=== PATIENT | male | born 1970 | race Caucasian/White ===

== ENCOUNTER → 2019-08-27 14:27 | Outpatient (CLI) | payer BC, SELFPAY ==
--- NOTE | 2019-08-27 14:36 | US_ITS ---
PROCEDURE: US LIVER CLINICAL INDICATION: ELEVATED LIVER ENZYMES Elevated liver enzymes, elevated cholesterol COMPARISON: No exams were available for comparison FINDINGS: PANCREAS: Unremarkable. No obvious mass or abnormal fluid collection. No ductal dilatation LIVER: There is slight increased echogenicity of the liver the suggesting fatty liver. No focal liver lesions or biliary dilatation evident. Appropriate portal blood flow RIGHT KIDNEY: There is a complex cystic lesion involving the mid aspect of the right kidney which measures 4 x 2.5 cm with central increased echogenicity which may represent some calcium. GALLBLADDER: No gallstones, gallbladder wall thickening, pericholecystic fluid, or biliary dilatation. IMPRESSION: 1. Complex cystic lesion of the right kidney at 4 x [address] with renal protocol without and with contrast 2. No gallstones or biliary dilatation. Dictated by: Constantino Rowland MD 08/28/2019 11:39 Electronically signed by Constantino Rowland MD in [place] 08/28/2019 11:39
== END ==
PROVIDERS: PCP Nurse Practitioner; Visit Provider Nurse Practitioner
DX: R74.8 Abnormal levels of other serum enzymes (principal)
CPT/HCPCS: 76705

== ENCOUNTER → 2019-09-16 10:21 | Outpatient (CLI) | payer BC, SELFPAY ==
--- NOTE | 2019-09-16 11:28 | CT_ITS ---
PROCEDURE: CT ABDOMEN PELVIS WO/W CON CLINICAL INDICATION: ABN ULTRASOUND OF RT KIDNEY Complex right renal cyst COMPARISON: US LIVER from 08/27/2019 TECHNIQUE: IV Contrast: 75ML OPTIRAY 350 Oral Contrast none Axial images obtained with sagittal and coronal reformats. All CT scans at the facility use one or more dose reduction, viz: automated exposure control, ma/kV adjustment per patient size (including targeted exams where dose is matched to indication, i.e. head), or iterative reconstruction technique. FINDINGS: LOWER THORAX: Old granulomatous disease ABDOMEN & PELVIS: The liver, gallbladder, spleen, pancreas, adrenal glands, and left kidney have an unremarkable appearance aside from a small exophytic left renal cyst anteriorly measuring 11 mm. There is a by a lobular appearing right renal cyst with a thin internal septation. This cyst measures 3.9 by 3 cm. There is no calcification of the wall. The septation is thin with questionable but not measurable enhancement. There is diverticulosis of the descending colon and sigmoid colon. No evidence of diverticulitis. The appendix has an unremarkable appearance. No intestinal obstruction or free air. No pelvic mass or abnormal fluid collection. There is a small sclerotic focus of the left femoral neck consistent with a bone island IMPRESSION: 1. Right renal cyst probably benign, Bosniak 2 F. suggest 6 month follow-up 2. Colonic diverticulosis. Dictated by: Constantino Rowland MD 09/17/2019 10:28 Electronically signed by Constantino Rowland MD in [place] 09/17/2019 10:28
== END ==
PROVIDERS: PCP Nurse Practitioner; Visit Provider Nurse Practitioner
DX: R93.421 Abnormal radiologic findings on diagnostic imaging of right kidney (principal)
CPT/HCPCS: 74178; Q9967

== ENCOUNTER → 2020-09-04 10:02 | Outpatient (CLI) | payer MEDICAID, SELFPAY ==
--- NOTE | 2020-09-04 10:05 | NM_ITS ---
PROCEDURE: NM HEPATOBILIARY W PHARM CLINICAL INDICATION: ABD PAIN,CONTRACTION GB COMPARISON: No exams were available for comparison TECHNIQUE: 8.5 mCi technetium 9 M Choletec was injected initially. This was followed by 1.7 mcg of CCK evaluation ejection fraction. DOSE: FINDINGS: Homogeneous activity is present within the hepatic parenchyma. Activity is present in the gallbladder by 15 minutes. Activity is present in the small bowel by 10 minutes. The gallbladder ejection fraction is calculated to be 52 percent. CCK-The patient did not report pain or other symptoms during CCK infusion. IMPRESSION: Essentially normal study, ejection fraction at the low normal range Dictated by: Dr. Gurdeep Black MD 09/04/2020 12:53 Dr. Gurdeep Black MD in [place] 09/04/2020 12:53
== END ==
PROVIDERS: PCP Nurse Practitioner; Visit Provider Nurse Practitioner
DX: R10.11 Right upper quadrant pain (principal); K82.0 Obstruction of gallbladder
CPT/HCPCS: 78227; A9537; J2805

== ENCOUNTER 2021-05-08 12:30 | Emergency (ER) | payer BC, SELFPAY ==
[2021-05-08 12:42] VITALS: BP 126/76; PULSE 89; RESP 89; TEMP 36.4; O2SAT 98; BMI 29.0
[2021-05-08 14:00] VITALS: BP 126/76; PULSE 89; RESP 21; TEMP 36.4; O2SAT 98; BMI 29.0
--- NOTE | 2021-05-08 14:22 | XR_ITS ---
PROCEDURE: XR KNEE LT 3V CLINICAL INDICATION: PAIN COMPARISON: No exams were available for comparison FINDINGS: No fracture or dislocation. No lytic or blastic change. There is normal mineralization. The joint spaces are well-preserved. No significant degenerative/arthritic changes. No erosive changes evident. Other findings:None. IMPRESSION: No acute findings. Dictated by: Constantino Rowland MD 05/08/2021 14:57 Constantino Rowland MD in [place] 05/08/2021 14:57
--- NOTE | 2021-05-08 14:43 | HMH.EDUTC ---
[facility] Disposition Clinical Impression: Knee pain Qualifiers: Chronicity: unspecified Laterality: left Qualified Code(s): M25.562 - Pain in left knee Disposition: Home, Self-Care Condition on Discharge: Good Instructions: How To Perform RICE (Rest, Ice, Compress, Elevate) Additional Instructions: *weight bearing as tolerated *RICE, Rest the extremity, Ice 15-20 minutes 3-4 times daily, Compress- wear the chester wrap as discussed as much as possible to help reduce swelling and pain, Elevate the extremity when at rest *Chester wrap is for support and help control swelling, use it except in the shower. Be sure that is not to tight but not to loose either *Elevate when resting *Ibuprofen 600-800mg every 6-8 hours as needed for pain an inflammation. If need something more can take Tylenol in between doses of Ibuprofen to help if you have been told that you can take it Immediately follow up with your family doctor for new or worsening of symptoms, or no noticeable improvement over the next 3-5 days Return if needed Straight to ER if any life threatening Referrals: Tomasa Canales APRN [Primary Care Provider] - As needed Time of Disposition: 15:03 Medical Decision Making - Paramjit Inquiry Pt receiving controlled substance: No Paramjit was queried for this patient: No Vital Signs: 05/08/21 12:42 05/08/21 14:00 Temperature 97.6 F 97.6 F Temperature Source Oral Oral Pulse Rate [Right Radial] 89 89 Respiratory Rate 89 H 21 Blood Pressure [Right Arm] 126/76 126/76 Blood Pressure Mean [Right Arm] 92 92 Blood Pressure Source [Right Arm] Automatic Cuff Automatic Cuff Blood Pressure Position [Right Arm] Sitting Sitting 02 Sat by Pulse Oximetry 98 98 Oxygen Delivery Method Room Air Room Air Orders (Tests/Meds): ORDERS Category Date Time Status XR knee LT 3V Stat Exams 05/08/21 14:22 Taken - Radiology Data #1 Image(s): Knee (left) Image Reviewed: Yes I have reviewed radiologist's interpretation Preliminary Findings: No Fracture Seen No acute findings. [facility] HPI - General Stated complaint: left knee pain Time Seen by Provider: 05/08/21 14:44 Mode of Arrival: Ambulatory Source of Information: Patient Limitations: No Limitations Description of Symptoms (Recalled from Triage Doc. by RN): PATIENT C/O WORSENTING LEFT KNEE PAIN X 3 WEEKS. NO KNOWN INJURY HEENT Symptoms (Recalled from RN notes): No Resp Symptoms (Recalled from RN notes): No Skin Symptoms (Recalled from RN notes): No MS Symptoms (Recalled from RN notes): Yes Functional Status (Recalled from RN notes): WNL - History of Present Illness Provider Complaint: Patient states that he has been having pain in his right knee for about 3 weeks on and off State that it is worse when he is sitting with it bent and feels better when he is up walking around states that he has been taking OTC ibuprofen and it has helped him some Denies known injury - Related Data Home Medications Medication Instructions Recorded Confirmed No Known Home Medications 10/27/18 10/27/18 Allergies Allergy/AdvReac Type Severity Reaction Status Date / Time No Known Allergies Allergy Verified 10/27/18 03:53 - Worker's Comp Is this a Worker's Comp case?: No [facility] History - Hepatitis A Screen Drug use history?: No High risk sexual behaviors?: No History of sexually transmitted infection?: No Currently employed?: No Childcare worker?: No Do you have indoor plumbing?: Yes Do you have electricity?: Yes Attestation statement:: This patient has been screened for Hepatitis A risk factors. I have reviewed the patient's past medical history: Yes Medical History: Denies:: Cancer, Diabetes Mellitus Type 1, Diabetes Mellitus Type 2, MRSA Amputation: No Fractures: No - Social History Smoking Status: Current every day smoker # Packs/Day (cigarettes): 1 Alcohol Intake: current Alcohol Intake Frequency:: holidays/special occasions only Occupational Status: employed Housing:
[2021-05-08 15:09] VITALS: BP 126/76; PULSE 89; RESP 21; TEMP 36.4; O2SAT 98
== END 2021-05-08 15:10 | disposition home or self-care (01) ==
PROVIDERS: Emergency Provider Nurse Practitioner; PCP Nurse Practitioner
DX: M25.562 Pain in left knee (principal); F17.210 Nicotine dependence, cigarettes, uncomplicated
CPT/HCPCS: 73562; 99202; G0463

== ENCOUNTER 2022-10-29 15:23 | Outpatient (CLI) | payer SELFPAY | END 2022-10-29 16:00 | disposition home or self-care (01) | LOC: UTC 15:30 → UTC.OUT 15:35 | PROVIDERS: PCP Nurse Practitioner; Visit Provider Nurse Practitioner Family | DX: Z02.4 Encounter for examination for driving license (principal) ==

== ENCOUNTER 2025-03-27 18:52 | Emergency (ER) | payer SELFPAY ==
--- OUTSIDE RECORDS SUMMARY | 2021-10-18 11:05 | XMS_ITS | Continuity of Care Document ---
Author Organization [facility] Address [address] [place] [address] Phone Care Team Providers Care Shearer Helper Name Role Phone Hermes BRAGG, Stiven Unavailable Unavailable Allergies, Adverse Reactions, Alerts Substance Reaction Status Criticality No Known Drug Allergies Active No I nformation Medications Medication Instructions Dosage Effective Dates (start - stop) Status Comments prednisone 5 mg tablet take 6 pills x 3 days, then 4 pills x 3 days, then 2 pills x 3 days, then 2 pills every other day x 3 doses - Active Ultram 50 mg tablet take 1 tablet by oral route every 6 hours as needed - Active Gaffney 5 mg-325 mg tablet take 1 tablet by oral route every 4 - 6 hours as needed for pain - Active MAX 6 PER DAY Percocet 5 mg-325 mg tablet take 1 - 2 Tablet by ORAL route every 4 - 6 hours as needed 1-2 Tablet - Active MAX 9 A DAY promethazine 25 mg tablet take 1 tablet by oral route every 4 - 6 hours as needed 25 MG - Active Procedures Procedure Date Office/outpatient visit,new, mod 2021 X-ray exam of hand, 3+ views Postop followup visit Postop followup visit Postop followup visit X-ray exam of finger(s),2+ views 2017 Repair hand joint MRI Upr Ext Joint wo Contrast 7 Office/outpatient visit,est, mod 2016 Office/outpatient visit,est, mod 2016 Office/outpatient visit,est, mod 2016 Drain/inject small jointor bursa 2016 Dexamethasone sodium phos Office/outpatient visit,new, mod 2016 X-ray exam of finger(s),2+ views 2016 Advance Directives Directive Yes / No Effective Date File Name No Information Encounters Encounter Description Practice Location Reason(s) For Visit Diagnoses Date Provider Providers Copied on Encounter Office/outpat ient visit,new, mod [facility], [facility] [place], [place], [facility], tel:[phone] [facility] hand (chief complaint) Other infective (teno)synovi tis, left hand 2 Hermes Saleem. [address] [address], [place], [place], [id number] , [place]. tel:[phone] Referring Provider: Stiven Mirza, [address] [address], [place], [address] . tel:[phone] [facility] [address], [facility], tel:[phone] 00 [facility] No Information 8 Hermes Saleem. [address], [id number] , [place]. tel:[phone] [facility] [address] [address] [address] [place], [place], [facility], tel:[phone] 00 [facility] No Information - 8 Hermes Saleem. [address] [facility], [address] [address], [place], [place], [id number] , [place]. tel:[phone] [facility], [facility] [place], [place], [facility], tel:[phone] 00 [facility] No Information 8 Hermes Saleem. [address] [facility], [facility], [place], [place], [id number] , [place]. tel:[phone] [facility], [facility] [place], [place], [facility], [place] tel:[phone] 00 [facility] No Information 8 Hermes Stiven. [address] [facility], [address] [address], [place], [place], [id number] , [place]. tel: [phone] [facility], [address] [place] [address], [facility], [place] tel:[phone] [facility] No Information 8 Hermes Stiven. [address] [address], [place], [place], [id number] , [place]. tel: [phone] [facility] [address], [facility], [place] tel:[phone] [facility] No Information 8 Hermes Stiven. [address] [address], [place], [place], [id number] , [place]. tel: [phone] [facility], [address] [place] [address], [facility], [place] tel:[phone] 00 [facility] No Information 8 Hermes Stiven. [address] [address], [place], [place], [id number] , [place]. tel: [phone] [facility], [address] [place] [address], [facility], [place] tel:[phone] [facility] Traumatic rupture of right ulnar collateral ligament, init 8 Hermes Stiven. [address] [address], [place], [place], [id number] , [place]. tel:[phone] [facility], [address] [place] [address], [facility], [place] tel:[phone] 00 [facility] No Information 7 Hermes Stiven. [address] [facility], [facility], [place], [place], [id number] , [place]. tel:[phone] Referring Provider: Stiven Mirza, [address] [address], [place], [address] . tel:[phone] Office/outpat ient visit,est, mod [facility], [facility] [place], [facility], tel:[phone] [facility] No Information 7 Hermes Saleem. [address] [address], [place], [place], [id number] , [place]. tel:[phone] Office/outpat ient visit,est, mod [facility], [facility] [place], [facility], tel:[phone] [facility] No Information 7 Hermes Stiven. [address] [address], [place], [place], [id number] , . tel:[phone] Office/outpat ient visit,est, mod [facility], [facility] [place], [facility], tel:[phone] [facility] No Information 7 Hermes Stiven. [address] [address], [place], [place], [id number] , . tel:[phone] Office/outpat ient visit,new, mod [facility], [facility] [place], [facility], tel:[phone] [facility] hand (chief complaint) No Information 7 Hermes Saleem. [address] [facility], [address] [address], [place], [place], [id number] , . tel:[phone] Family History Family Member Type Diagnosis Age At Onset No Information Payers Payer name Insurance type Covered alliance party ID Jalyn sandoval(s) Combs - [id number] Social History Type Description Quantity Date Captured Comments Alcohol Use Details Caffeine Use Details Tobacco Use Status Smoking Status Current some day smoker 022 Sex Male Chief Complaint And Reason For Visit From encounter dated '10/18/2021 15:05'. hand (chief complaint). Description: Location: left hand. Associated symptoms include joint tenderness, swelling and weakness. Pertinent negatives include bruising. Hand Dominance: right. Reason For Referral Reason For Referral No Information History Of Present Illness Encounter Date Complaint History Of Prese nt Illness hand Location: left h and. Associated symptoms include joint tenderness, swelling and weakness. Pertinent negatives include bruising. Hand Dominance: right. hand Location: right hand (thumb(s)). The pain is aching and sharp. The pain is aggravated by bending and movement. There are no relieving factors. Associated symptoms include joint instability, joint tenderness, swelling and weakness. Hand Dominance: right. Functional Status Date Functional Assessmen t No Information Instructions Date Instruction Additional Infor mation No Information Assessments Type Assessment Date No Information Patient Care Teams Name Effective Dates (start - stop) Status Members No Information
[2025-03-27 19:04] VITALS: BP 137/89; PULSE 78; RESP 18; TEMP 36.8; O2SAT 100; BMI 28.1
--- NOTE | 2025-03-27 19:05 | XR_ITS ---
PROCEDURE INFORMATION: Exam: XR Right Hand Exam date and time: 03/27/2025 7:27 PM Age: 54 years old Clinical indication: Injury or trauma; Other: Smashed with wood TECHNIQUE: Imaging protocol: Radiologic exam of the right hand. Views: 1 or 2 views. COMPARISON: No relevant prior studies available. 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 Soft tissues: Curvilinear lucency overlying the interspace between the 1st and 2nd metacarpals which could represent gas within the soft tissues or an overlying skin fold. No radiopaque foreign body appreciated. IMPRESSION: No acute fracture appreciated. Questionable gas within the soft tissues overlying the interspace between the 1st and 2nd metacarpals versus a skin fold. No radiopaque foreign body. Osteoarthritis.
--- OUTSIDE RECORDS SUMMARY | 2025-03-27 19:05 | XMS_ITS | Encounter Summary ---
Author Organization [employer] ([place], [place], [place], [place]) Address [address] [place] [address] Care Team Providers Care Psychological Stress Evaluator Name Role Phone Unavailable Primary Care Provider Unavailabl e Encounter Details Date Type Department Care Team (Late st Contact Info) Description 10/13/2018 Transcribed Document [facility] Family Medicine [facility] [place] [address] ProviderPaul MD [address] [place] [address] Social History Tobacco Use Types Packs/Day Years Used Date Smoking Tobacco: Never Assessed Sex and Gender Information Value Date Recorded Sex Assigned at Male 03/07/2022 4:44 PM CDT Legal Sex Male 6:27 PM CDT Gender Identity Male 03/07/2022 4:44 PM CDT Sexual Orientation Not on file documented as of this encounter Miscellaneous Notes * Cerner Conversion Note - Historical ProviderMD - 10/13/2018 10:23 PM PLASTICS DESIGN ENGINEER ED Triage Entered On: 10/13/2018 22:32 EST Performed On: 10/13/2018 22:28 EST by Ida Kaur, DEGREASING SOLUTION MIXER Triage Across the Room Triage Date/Time : 10/13/2018 22:28 EST Chief Complaint : pt was eating a roast this evening and felt it get caught. pt went to OSH and was sent here for further eval. skin pwd, resp even and nonlabored. Ida Kaur, RN - 10/13/2018 22:28 EST DCP GENERIC CODE Tracking Acuity : 3 - Urgent Tracking Group : [facility] Ida Kaur, RN - 10/13/2018 22:28 EST Mode of Arrival : Ambulatory Transported to ED by : Private vehicle To Room Via : Ambulate Accompanied By : Unaccompanied ED Vital Signs : Document Height & Weight : Document ED Allergies : Document ED Reason for Visit : Document Ida Kaur RN - 10/13/2018 22:28 EST Infectious Disease History Infectious Disease History : None Fever/Chills Last 48 Hours : No Travel To Regions with Travel Advisories : No Travel Outside [place] Within Last 30 Days : No Contact With Traveler to Advisory Region : No Tuberculosis Symptoms : None Ida Kaur RN - 10/13/2018 22:28 EST Vital Signs ED Temperature Source : Temporal artery scanning Temperature Mode : Fahrenheit Temperature, Fahrenheit : 96.5 Deg F (LOW) Clinical Temperature, C : 35.8 Deg C Oxygen Therapy Mode : Room air Peripheral Pulse Rate : 93 bpm Respiratory Rate : 18 Breaths/Min Systolic Blood Pressure : 139 mmHg Diastolic Blood Pressure : 91 mmHg (HI) Oxygen Saturation : 96 % Ida Kaur RN - 10/13/2018 22:28 EST Allergy (As Of: 10/13/2018 22:32:37 EST) Allergies (Active) No Known Medication Allergies Estimated Onset Date: Unspecified ; Created By: Ida Kaur RN; Reaction Status: Active ; Category: Drug ; Substance: No Known Medication Allergies ; Type: Allergy ; Updated By: Ida Kaur RN; Reviewed Date: 10/13/2018 22:30 EST Diagnosis Control ED (As Of: 10/13/2018 22:32:37 EST) Problems(Active) Acid reflux disease (SNOMED CT :138847119 ) Name of Problem: Acid reflux disease ; Recorder: Ida Kaur RN; Confirmation: Confirmed ; Classification: Medical ; Code: [id number] ; Contributor System: [employer] ; Last Updated: 10/13/2018 22:30 EST ; Life Cycle Date: 10/13/2018 ; Life Cycle Status: Active ; Vocabulary: SNOMED CT Diverticulitis of both large and small intestine with perforation and abscess (SNOMED CT :932296016 ) Name of Problem: Diverticulitis of both large and small intestine with perforation and abscess ; Recorder: Ida Kaur RN; Confirmation: Confirmed ; Classification: Medical ; Code: [id number] ; Contributor System: PowerChart ; Last Updated: 10/13/2018 22:30 EST ; Life Cycle Date: 10/13/2018 ; Life Cycle Status: Active ; Vocabulary: SNOMED CT Diagnoses(Active) Foreign body in throat Date: 10/13/2018 ; Diagnosis Type: Reason For Visit ; Confirmation: Complaint of ; Clinical Dx: Foreign body in throat ; Classification: Medical ; Clinical Service: Emergency medicine ; Code: PNED ; Probability: 0 ; Diagnosis Code: [id number] ED Height and Weight Height Source : Stated Height Entry Format : [place] Height, Feet : 5 ft(Converted to: 152 cm, 60 Inch) Height, Inches : 6 Inch(Converted to: 0 ft 6 Inch, 15.24 cm) Clinical Height : 167.64 cm Weight Source, ED : Standing scale Weight Entry Format : [place] Weight, Pounds : 170 lb Clinical Dosing Weight : 77.27 kg Body Surface Area (BSA) : 1.87 m2 Body Mass Index : 27.5 kg/m2 (HI) Champion Body Weight (IBW) : 62.88 kg Ida Kaur RN - 10/13/2018 22:28 EST Electronically signed by Sherita Larsen Conversion Bindery Machine Feeder Offbearer Cerner at 12/22/2022 7:33 PM CDT documented in this encounter Plan of Treatment Not on file documented as of this encounter Visit Diagnoses Not on filedocumented in this encounter
--- OUTSIDE RECORDS SUMMARY | 2025-03-27 19:05 | XMS_ITS | Encounter Summary ---
Author Organization [employer] ([place], [place], [place], [place]) Address [address] [place] [address] Care Team Providers Care Speech Pathologist Name Role Phone Unavailable Primary Care Provider Unavailabl e Encounter Details Date Type Department Care Team (Late st Contact Info) Description 10/13/2018 Transcribed Document [facility] [place] Medicine [facility] [place] [address] ProviderPaul MD [address] [place] [id number] Social History Tobacco Use Types Packs/Day Years Used Date Smoking Tobacco: Never Assessed Sex and Gender Information Value Date Recorded Sex Assigned at Male 03/07/2022 4:44 PM CDT Legal Sex Male 6:27 PM CDT Gender Identity Male 03/07/2022 4:44 PM CDT Sexual Orientation Not on file documented as of this encounter Miscellaneous Notes * Cerner Conversion Note - Paul ProviderMD - 10/13/2018 10:23 PM SCRUBBER SYSTEM ATTENDANT ED Assessment Entered On: 10/13/2018 23:12 EST Performed On: 10/13/2018 23:11 EST by ARLEN CORNEJO RN ED Quick Look Assessment Level of Consciousness : Alert, Awake Affect/Behavior : Appropriate, Calm Orientation : Oriented x 4 Skin Temperature : Warm ARLEN CORNEJO RN - 10/13/2018 23:11 EST ED General-Functional Assess Information Obtained From : Patient Communication Barrier : None Primary Language : [place] Any Spiritual/Cultural Needs or Requests : No Currently in Unsafe Situation : No ARLEN CORNEJO RN - 10/13/2018 23:11 EST Social Habits Smoking Status : Never (less than 100 in lifetime; none in last 30 days) Smokeless Tobacco Status : Never Desires Tobacco Cessation Calc : 0 ARLEN CORNEJO RN - 10/13/2018 23:11 EST Social History (As Of: 10/13/2018 23:12:55 EST) EENT Assessment Throat : Difficulty swallowing Mouth/Throat Assessment Comment : patient states that he was eating roasrt AND HE THINKS IT IS HUNG ARLEN CORNEJO RN - 10/13/2018 23:11 EST Electronically signed by Chava [facility] Conversion Grill Cook Cerner at 12/22/2022 7:46 PM CDT documented in this encounter Plan of Treatment Not on file documented as of this encounter Visit Diagnoses Not on filedocumented in this encounter
--- OUTSIDE RECORDS SUMMARY | 2025-03-27 19:05 | XMS_ITS | Encounter Summary ---
Author Organization [employer] ([place], [place], [place], [place]) Address [address] [place] [address] Care Team Providers Care Head Of Human Resources Name Role Phone Unavailable Primary Care Provider Unavailabl e Encounter Details Date Type Department Care Team (Late st Contact Info) Description 11/05/2018 Transcribed Document [facility] [place] [facility] [place] [address] ProviderPaul MD [address] [id number] Social History Tobacco Use Types Packs/Day Years Used Date Smoking Tobacco: Never Assessed Sex and Gender Information Value Date Recorded Sex Assigned at Male 03/07/2022 4:44 PM CDT Legal Sex Male 6:27 PM CDT Gender Identity Male 03/07/2022 4:44 PM CDT Sexual Orientation Not on file documented as of this encounter Miscellaneous Notes * Cerner Conversion Note - Historical ProviderMD - 11/05/2018 1:27 PM CLINICAL STATISTICAL PROGRAMMER Nursing Discharge Summary Entered On: 11/05/2018 13:28 EST Performed On: 11/05/2018 13:27 EST by Arlene Irving RN Discharge Documentation Patient Disposition, General : Discharge Discharge To : Home with ambulatory/outpatient follow-up Mode Of Departure, General Discharge : Wheelchair Accompanied By, Discharge : Other: Sig other IV Discontinued : Yes Personal Belongings With Patient : Yes Prescriptions Given to Patient : Yes Discharge Instructions Reviewed With, Opportunity For Questions Given : Patient, Other: Sig other Patient Education Completed : Yes Number of Prescriptions Given : 1 Arlene Irving RN - 11/05/2018 13:27 EST Electronically signed by Chava [facility] Conversion Bail Bond Agent Cerner at 12/22/2022 7:46 PM CDT documented in this encounter Plan of Treatment Not on file documented as of this encounter Visit Diagnoses Not on filedocumented in this encounter
--- OUTSIDE RECORDS SUMMARY | 2025-03-27 19:05 | XMS_ITS | Encounter Summary ---
Author Organization [employer] ([place], [place], [place], [place]) Address [address] [place] [address] Care Team Providers Care Ocular Care Technician Name Role Phone Unavailable Primary Care Provider Unavailabl e Encounter Details Date Type Department Care Team (Late st Contact Info) Description 11/05/2018 Transcribed Document [facility] [place] [facility] [place] [address] ProviderPaul MD [address] [place] [address] Social History Tobacco Use Types Packs/Day Years Used Date Smoking Tobacco: Never Assessed Sex and Gender Information Value Date Recorded Sex Assigned at Male 03/07/2022 4:44 PM CDT Legal Sex Male 6:27 PM CDT Gender Identity Male 03/07/2022 4:44 PM CDT Sexual Orientation Not on file documented as of this encounter Miscellaneous Notes * Cerner Conversion Note - Paul ProviderMD - 11/05/2018 1:35 PM 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 [address] Deysi Oropeza, [place] [address] Patient Copy Patient Information: Name: DEANA SOMERS Current Date: 11/05/2018 13:35:00 : 1970 Patient Address: [address] [place] [place] [id number] Patient Attending Physician: TIARRA DE LOS SANTOS MD-ARIANNA Primary Care Provider: CORA WOODY DR Primary Care Provider Discharge Diagnosis: Weight on Admission: 172 lb, 6 oz Comment: Follow-up Instructions: With: Address: When: TIARRA DE LOS SANTOS [address], [address] [place], [place] [id number] Business (1) Within 7 weeks Comments: Follow up with Susana in Dr. Bhargav lopez in 6 to 8 weeks. Office will call you with appointment. Continue to to OMEPRAZOLE DAILY 30 mins before breakfast. AVOID ANY ANTI INFLAMITORY MEDICATIONS< STOP TAKING ASPIRIN OR IBUPROFEN. Discharge Instructions: Diet after Discharge: Regular diet as tolerated Activity after Discharge: Rest and relax today, No strenuous activities May Return to Work/School: Tomorrow Notify Provider of: Any questions or concerns Immunizations Documented During Stay: No Immunizations Found Heart Failure Discharge Instructions (if any): Stroke Related Discharge Instructions (if any): Warfarin Related Discharge Instructions (if any): Final Medication List: Printed Prescriptions omeprazole (omeprazole 20 mg oral delayed release capsule) 1 Capsule(s) Oral Every Day for 30 Day(s). before a meal. Refills: 4. Other Medications aspirin Oral Every Day. multivitamin (M.V.I. Adult) Oral Every Day. Patient Allergies: No Known Medication Allergies Medication Instructions: Take your medications faithfully. Do NOT skip medication. Do NOT stop taking medications without the direction of a physician. Carry a list of your medications with you at all times, and take this medication list with you to your first follow up visit. Report any side effects. Avoid herbal remedies unless discussed with your physician. As part of your treatment plan, your physician may have prescribed a limited course of a controlled substance. This medication may be given to help people with moderate or severe pain or for other medical conditions, but there are risks involved with treatment. Common side effects may include nausea, constipation, drowsiness, sweating, itching, dry mouth, and rash. More serious side effects may include cognitive and motor impairment, like problems with thinking, concentrating, alertness, and movement (e.g. slowed reflexes), and driving and operating heavy machinery can be dangerous. It is important for you to talk to your physician if you have these side effects or questions. These controlled substances can produce physical dependence and be habit-forming if taken for an extended period of time, which means that the body has gotten used to them and may experience withdrawal symptoms if they are abruptly stopped. Withdrawal symptoms can include runny nose, sweating, goose bumps, diarrhea, abdominal cramping, rapid heartbeat, difficulty sleeping, and nervousness. Patient education materials: Esophagitis Introduction Esophagitis is inflammation of the esophagus. The esophagus is the tube that carries food and liquids from your mouth to your stomach. Esophagitis can cause soreness or pain in the esophagus. This condition can make it difficult and painful to swallow. What are the causes? Most causes of esophagitis are not serious. Common causes of this condition include: ??? Gastroesophageal reflux disease (GERD). This is when stomach contents move back up into the esophagus (reflux). ??? Repeated vomiting. ??? An allergic-type reaction, especially caused by food allergies (eosinophilic esophagitis). ??? Injury to the esophagus by swallowing large pills with or without water, or swallowing certain types of medicines. ??? Swallowing (ingesting) harmful chemicals, such as household cleaning products. ??? Heavy alcohol use. ??? An infection of the esophagus.?This most often occurs in people who have a weakened immune system. ??? Radiation or chemotherapy treatment for cancer. ??? Certain diseases such as sarcoidosis, Crohn disease, and scleroderma. What are the signs or symptoms? Symptoms of this condition include:??? Difficult or painful swallowing. ??? Pain with swallowing acidic liquids, such as citrus juices. ??? Pain with burping. ??? Chest pain. ??? Difficulty breathing. ??? Nausea. ??? Vomiting. ??? Pain in the abdomen. ??? Weight loss. ??? Ulcers in the mouth. ??? Patches of white material in the mouth (candidiasis). ??? Fever. ??? Coughing up blood or vomiting blood. ??? Stool that is black, tarry, or bright red. How is this diagnosed? Your health care provider will take a medical history and perform a physical exam. You may also have other tests, including: ??? An endoscopy to examine your stomach and esophagus with a small camera. ??? A test that measures the acidity level in your esophagus. ??? A test that measures how much pressure is on your esophagus. ??? A barium swallow or modified barium swallow to show the shape, size, and functioning of your esophagus. ??? Allergy tests. How is this treated? Treatment for this condition depends on the cause of your esophagitis. In some cases, steroids or other medicines may be given to help relieve your symptoms or to treat the underlying cause of your condition. You may have to make some lifestyle changes, such as:??? Avoiding alcohol. ??? Quitting smoking. ??? Changing your diet. ??? Exercising. ??? Changing your sleep habits and your sleep environment. Follow these instructions at home: Take these actions to decrease your discomfort and to help avoid complications. Diet??? Follow a diet as recommended by your health care provider. This may involve avoiding foods and drinks such as:? Coffee and tea (with or without caffeine). ? Drinks that contain alcohol. ? Energy drinks and sports drinks. ? Carbonated drinks or sodas. ? Chocolate and cocoa. ? Peppermint and mint flavorings. ? Garlic and onions. ? Horseradish. ? Spicy and acidic foods, including peppers, chili powder, barcenas powder, vinegar, hot sauces, and barbecue sauce. ? Hachita fruit juices and citrus fruits, such as oranges, lesa, and limes. ? Tomato-based foods, such as red sauce, chili, salsa, and pizza with red sauce. ? Fried and fatty foods, such as donuts, lao fries, potato chips, and high-fat dressings. ? High-fat meats, such as hot dogs and fatty cuts of red and white meats, such as rib eye steak, sausage, ham, and cardenas. ? High-fat dairy items, such as whole milk, butter, and cream cheese. ??? Eat small, frequent meals instead of large meals. ??? Avoid drinking large amounts of liquid with your meals. ??? Avoid eating meals during the 2?3 hours before bedtime. ??? Avoid lying down right after you eat. ??? Do notexercise right after you eat. ??? Avoid foods and drinks that seem to make your symptoms worse. General instructions??? Pay attention to any changes in your symptoms. ??? Take izme-vdw-pzqvxun and prescription medicines only as told by your health care provider. Do not take aspirin, ibuprofen, or other NSAIDs unless your health care provider told you to do so. ??? If you have trouble taking pills, use a pill splitter to decrease the size of the pill. This will decrease the chance of the pill getting stuck or injuring your esophagus on the way down. Also, drink water after you take a pill. ??? Do notuse any tobacco products, including cigarettes, chewing tobacco, and e-cigarettes. If you need help quitting, ask your health care provider. ??? Wear loose-fitting clothing. Do not wear anything tight around your waist that causes pressure on your abdomen. ??? Raise (elevate) the head of your bed about 6 inches (15 cm). ??? Try to reduce your stress, such as with yoga or meditation. If you need help reducing stress, ask your health care provider. ??? If you are overweight, reduce your weight to an amount that is healthy for you. Ask your health care provider for guidance about a safe weight loss goal. ??? Keep all follow-up visits as told by your health care provider. This is important. Contact a health care provider if: ??? You have new symptoms. ??? You have unexplained weight loss. ??? You have difficulty swallowing, or it hurts to swallow. ??? You have wheezing or a persistent cough. ??? Your symptoms do not improve with treatment. ??? You have frequent heartburn for more than two weeks. Get help right away if: ??? You have severe pain in your arms, neck, jaw, teeth, or back. ??? You feel sweaty, dizzy, or light-headed. ??? You have chest pain or shortness of breath. ??? You vomit and your vomit looks like blood or coffee grounds. ??? Your stool is bloody or black. ??? You have a fever. ??? You cannot swallow, drink, or eat. This information is not intended to replace advice given to you by your health care provider. Make sure you discuss any questions you have with your health care provider. Document Released: 10/02/2005 Document Revised: 01/30/2017 Document Reviewed: 12/20/2015 ? 2017 [employer] Gastritis, Adult Gastritis is soreness and puffiness (inflammation) of the lining of the stomach. If you do not get help, gastritis can cause bleeding and sores (ulcers) in the stomach. HOME CARE ??? Only take medicine as told by your doctor. ??? If you were given antibiotic medicines, take them as told. Finish the medicines even if you start to feel better. ??? Drink enough fluids to keep your pee (urine) clear or pale yellow. ??? Avoid foods and drinks that make your problems worse. Foods you may want to avoid include: ? Caffeine or alcohol. ? Chocolate. ? Mint. ? Garlic and onions. ? Spicy foods. ? Hachita fruits, including oranges, lesa, or limes. ? Food containing tomatoes, including sauce, chili, salsa, and pizza. ? Fried and fatty foods. ??? Eat small meals throughout the day instead of large meals. GET HELP RIGHT AWAY IF: ??? You have black or dark red poop (stools). ??? You throw up (vomit) blood. It may look like coffee grounds. ??? You cannot keep fluids down. ??? Your belly (abdominal) pain gets worse. ??? You have a fever. ??? You do not feel better after 1 week. ??? You have any other questions or concerns. MAKE SURE YOU: ??? Understand these instructions. ??? Will watch your condition. ??? Will get help right away if you are not doing well or get worse. This information is not intended to replace advice given to you by your health care provider. Make sure you discuss any questions you have with your health care provider. Document Released: 02/10/2009 Document Revised: 11/16/2012 Document Reviewed: 05/18/2016 [employer] Interactive Patient Education ? 2017 [employer] Peptic Ulcer A peptic ulcer is a painful sore in the lining of your esophagus, stomach, or in the first part of your small intestine. The main causes of an ulcer can be: ??? An infection. ??? Using certain pain medicines too often or too much. ??? Smoking. HOME CARE ??? Avoid smoking, alcohol, and caffeine. ??? Avoid foods that bother you. ??? Only take medicine as told by your doctor. Do not take any medicines your doctor has not approved. ??? Keep all doctor visits as told. GET HELP IF: ??? You do not get better in 7 days after starting treatment. ??? You keep having an upset stomach (indigestion) or heartburn. GET HELP RIGHT AWAY IF: ??? You have sudden, sharp, or lasting belly (abdominal) pain. ??? You have bloody, black, or tarry poop (stool). ??? You throw up (vomit) blood or your throw up looks like coffee grounds. ??? You get light-headed, weak, or feel like you will pass out (faint). ??? You get sweaty or feel sticky and cold to the touch (clammy). MAKE SURE YOU: ??? Understand these instructions. ??? Will watch your condition. ??? Will get help right away if you are not doing well or get worse. This information is not intended to replace advice given to you by your health care provider. Make sure you discuss any questions you have with your health care provider. Document Released: 11/19/2010 Document Revised: 09/15/2015 Document Reviewed: 05/25/2016 [employer] Interactive Patient Education ? 2017 [employer]. Esophagogastroduodenoscopy, Care After Introduction Refer to this sheet in the next few weeks. These instructions provide you with information about caring for yourself after your procedure. Your health care provider may also give you more specific instructions. Your treatment has been planned according to current medical practices, but problems sometimes occur. Call your health care provider if you have any problems or questions after your procedure. What can I expect after the procedure? After the procedure, it is common to have:??? A sore throat. ??? Nausea. ??? Bloating. ??? Dizziness. ??? Fatigue. Follow these instructions at home: ??? Do noteat or drink anything until the numbing medicine (local anesthetic) has worn off and your gag reflex has returned. You will know that the local anesthetic has worn off when you can swallow comfortably. ??? Do notdrive for 24 hours if you received a medicine to help you relax (sedative). ??? If your health care provider took a tissue sample for testing during the procedure, make sure to get your test results. This is your responsibility. Ask your health care provider or the department performing the test when your results will be ready. ??? Keep all follow-up visits as told by your health care provider. This is important. Contact a health care provider if: ??? You cannot stop coughing. ??? You are not urinating. ??? You are urinating less than usual. Get help right away if: ??? You have trouble swallowing. ??? You cannot eat or drink. ??? You have throat or chest pain that gets worse. ??? You are dizzy or light-headed. ??? You faint. ??? You have nausea or vomiting. ??? You have chills. ??? You have a fever. ??? You have severe abdominal pain. ??? You have black, tarry, or bloody stools. This information is not intended to replace advice given to you by your health care provider. Make sure you discuss any questions you have with your health care provider. Document Released: 08/11/2013 Document Revised: 01/30/2017 Document Reviewed: 07/18/2016 ? 2017 [employer] CIGARETTE SMOKING: The facts are clear, cigarette smoking will shorten your life. Smoking can cause many illnesses along the way. As a healthcare provider, we recommend that you stop smoking. Assistance with quitting is available by contacting 3-853-UIFQ-NOW. This is a free resource providing counseling, support, and referral. Or you may contact your personal physician. 4 WAYS TO GET AHEAD OF SEPSIS SEPSIS is a MEDICAL EMERGENCY. Time matters! Infections put you and your family at risk for a life-threatening condition called sepsis. Sepsis is the body???s extreme response to an infection. It is life-threatening, and without timely treatment, sepsis can rapidly lead to tissue damage, organ failure, and . Sepsis happens when an infection you already have???in your skin, lungs, urinary tract or somewhere else???triggers a chain reaction throughout your body. 1 PREVENT INFECTIONS Take good care of chronic conditions. Talk to your doctor about getting the recommended vaccines. 2 PRACTICE GOOD HYGIENE Wash your hands frequently. Keep cuts or open sores clean and covered until they are healed. 3 KNOW THE SYMPTOMS Confusion or disorientation Shortness of breath High heart rate Fever, shivering, or feeling very cold Extreme pain or discomfort Clammy or sweaty skin 4 ACT FAST Get medical care IMMEDIATELY if you suspect sepsis or if you have an infection that???s not getting better or is getting worse. To learn more about sepsis and how to prevent infections, visit www.cdc.gov/sepsis. STROKE is an EMERGENCY Every Min[employer] Counts ACT F.A.S.T! FACE ?? Facial droop ?? Uneven smile ARM ?? Arm numbness ?? Arm weakness SPEECH ?? Slurred speech ?? Difficulty speaking or understanding TIME ?? Call 911 and get to the hospital immediately Have the ambulance go to the nearest stroke center. STROKE Risk Factors High blood pressure High cholesterol Heart Disease Diabetes Smoking Heavy alcohol use Physical inactivity and obesity Atrial Fibrillation (irregular heartbeat) Family history of stroke Reminder: Be sure to sign up for the OneDoc patient portal, which gives you 31/03 access to your medical information ??? including these discharge instructions ??? using your computer, smartphone, or tablet. Just go to [employer] to get started. Questions? Call . [facility] would like to thank you for allowing us to assist you with your healthcare needs. CHRISTINE Durbin JOE ALLEN, (or medical customer service representative) have received the above patient education materials/instructions and have verbalized understanding: Patient Signature _ Date/Time Patient Health Care Coordinator Signature (if needed) Date/Time Clinician/Hospital Health Care Coordinator Signature (if needed) Date/Time documented in this encounter Plan of Treatment Not on file documented as of this encounter Visit Diagnoses Not on filedocumented in this encounter
--- OUTSIDE RECORDS SUMMARY | 2025-03-27 19:05 | XMS_ITS | Encounter Summary ---
Author Organization [employer] ([place], [place], [place], [place]) Address [address] [place] [address] Care Team Providers Care Electrical Accessories Ii Assembler Name Role Phone Unavailable Primary Care Provider Unavailabl e Encounter Details Date Type Department Care Team (Late st Contact Info) Description 10/14/2018 Transcribed Document [facility] [place] Family Medicine [facility] [place] [address] ProviderPaul MD [address] [place] [address] Social History Tobacco Use Types Packs/Day Years Used Date Smoking Tobacco: Never Assessed Sex and Gender Information Value Date Recorded Sex Assigned at Male 03/07/2022 4:44 PM CDT Legal Sex Male 6:27 PM CDT Gender Identity Male 03/07/2022 4:44 PM CDT Sexual Orientation Not on file documented as of this encounter Miscellaneous Notes * Cerner Conversion Note - Historical ProviderMD - 10/14/2018 1:50 AM 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 taliking with family. patient discharge instructions given. patient is to call Dr Espinoza tomorrow to get a follow up appointment. patient is to take prilosec 20mg daily. patient and brother verbalized understanding ARLEN CORNEJO RN - 10/14/2018 1:57 EST Electronically signed by Chava [facility] Conversion Analyst Competitive Intelligence Cerner at 12/22/2022 7:42 PM CDT documented in this encounter Plan of Treatment Not on file documented as of this encounter Visit Diagnoses Not on filedocumented in this encounter
--- OUTSIDE RECORDS SUMMARY | 2025-03-27 19:05 | XMS_ITS | Encounter Summary ---
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 Name: DEANA SOMERS/Sex: 1970 Male Med Rec #: [id number] Physician: TIARRA DE LOS SANTOS MD-GAE Financial #: [id number] Pt. Type: E Room/Bed: / Admit/Disch: 10/13/18 22:23:00 - Institution: [place] - Case Attendance Entry 1 Entry 2 Entry 3 Case Attendee TIARRA DE LOS SANTOS MD-GAE Bicknell, Ashley, BASIA NELSON Role Performed Surgeon/Proceduralist, Pasteuriser Operator, First Scrub, First First Time In 10/13/18 23:15:00 10/13/18 23:15:00 10/13/18 23:15:00 Time Out 10/13/18 23:32:00 10/13/18 23:56:00 10/13/18 23:40:00 Procedure Esophagogastroduodenosco Esophagogastroduodenosco Esophagogastroduodenosco py py py Other Attendee Superficial Wound Closed By: Last Modified By: Radha Kaur, Radha Choi, RN Radha Kaur, KVNG 10/13/18 23:56:43 10/13/18 23:56:43 10/13/18 23:56:43 [facility] - Case Attendance Audit 10/13/18 23:56:43 Morning Show Producer: SANDRAKNEA Modifier: BICKNEA 1 <+> Time Out 1 <*> Procedure Esophagogastroduodenoscopy 2 <+> Time Out 2 <*> Procedure Esophagogastroduodenoscopy 3 <+> Time Out 3 <*> Procedure Esophagogastroduodenoscopy 10/13/18 23:16:30 Morning Show Producer: SANDRAKNEA Modifier: BICKNEA <+> 1 Procedure 2 <*> Procedure Esophagogastroduodenoscopy 3 <*> Procedure Esophagogastroduodenoscopy [facility] - Case Times Entry 1 Patient In Room Time 10/13/18 23:15:00 Out Room Time 10/13/18 23:56:00 Anesthesia Start Time 10/13/18 23:15:00 Stop Time 10/13/18 23:29:00 Anesthesia Ready 10/13/18 23:15:00 Surgery / Procedure Times Start Time 10/13/18 23:27:00 Stop Time 10/13/18 23:29:00 Last Modified By: Radha Kaur, KVNG 10/13/18 23:56:24 [facility] - Case Times Audit 10/13/18 23:56:24 Morning Show Producer: BICKNEA Modifier: BICKNEA <+> 1 Out Room Time 10/13/18 23:36:09 Morning Show Producer: BICKNEA Modifier: BICKNEA <+> 1 Stop Time 10/13/18 23:35:41 Morning Show Producer: BICKNEA Modifier: BICKNEA <+> 1 Start Time <+> 1 Stop Time [facility] - General Case Art Historian 1 Case Information OR Out of Department [facility] 1 Room Verified Yes Wound Class II - Clean-Contaminated Specialty SN Gastroenterology Anesthesia Type Moderate Sedation ASA Class 2 Diagnosis Preop Diagnosis food bolus Postop Same As Preop No Postop Diagnosis esophagitis Last Modified By: Radha Kaur RN 10/13/18 23:35:49 [facility] [place] - General Case Data Audit 10/13/18 23:35:49 Morning Show Producer: DELANEY Modifier: CHERELLEEA <+> 1 Postop Diagnosis [facility] - Surgical Procedures Entry 1 Procedure Esophagogastroduodenosco py Primary Procedure Yes Primary Surgeon ITARRA DE LOS SANTOS MD-GAE Start 10/13/18 23:27:00 Stop 10/13/18 23:29:00 Anesthesia Type Moderate Sedation Specialty SN Gastroenterology Wound Class II - Clean-Contaminated Last Modified By: Radha Kaur RN 10/13/18 23:35:57 [facility] - Surgical Procedures Audit 10/13/18 23:35:57 Morning Show Producer: DELANEY Modifier: CHERELLEEA <+> 1 Start <+> 1 Stop Case Comments <None> Finalized By: Radha Kaur, RN Document Signatures Signed By: Radha Kaur RN 10/13/18 23:56 Electronically signed by Chava [facility] Conversion Executive Staff Assistant Cerner at 12/22/2022 7:35 PM CDT documented in this encounter Plan of Treatment Not on file documented as of this encounter Visit Diagnoses Not on filedocumented in this encounter
--- OUTSIDE RECORDS SUMMARY | 2025-03-27 19:05 | XMS_ITS | Encounter Summary ---
Author Organization [employer] ([place], [place], [place], [place]) Address [address] [place] [address] Care Team Providers Care Monorail Car Operator Name Role Phone Unavailable Primary Care Provider Unavailabl e Encounter Details Date Type Department Care Team (Late st Contact Info) Description 10/14/2018 Transcribed Document [facility] [place] Medicine [facility] [place] [address] ProviderPaul MD [address] [place] [address] Social History Tobacco Use Types Packs/Day Years Used Date Smoking Tobacco: Never Assessed Sex and Gender Information Value Date Recorded Sex Assigned at Male 03/07/2022 4:44 PM CDT Legal Sex Male 6:27 PM CDT Gender Identity Male 03/07/2022 4:44 PM CDT Sexual Orientation Not on file documented as of this encounter Miscellaneous Notes * Cerner Conversion Note - Paul ProviderMD - 10/14/2018 2:02 AM HAND EDGER [address] [place] [address] Patient Information Name: DEANA SOMERS Age: 48 Years Date of : 1970 Arrival Time: 10/13/2018 22:23:00 Diagnosis Primary Care Physician: CORA WOODY DR Provider Information Primary Provider: Svetlana Pompa Secondary Provider: DEANA SOMERS has been given the following list of patient education materials, prescriptions and follow-up instructions: Follow-up Instructions: With: Address: When: TIARRA ESPINOZA [address] [place] [address] [address], [address] [place] [address] Business (1) Within 2 to 3 days Comments: Prilosec 20mg daily over the counter Call Dr Espinoza tomorrow for an appointment in a few days With: Address: When: MEMO ARAUZ [address] [place] [address], [address] [place] [address] Business (1) Within 2 to 3 days With: Address: When: NO PRIM DR WOODY Within 2 to 3 days Patient Education Materials: Allergies: No Known Medication Allergies Medication Information: Laboratory or Other Results This Visit (last charted value for your 10/13/2018 visit) No Laboratory or Other Results This Visit Medication Comment: Procedures: Laboratory Orders No laboratory orders were placed. Radiology Orders No radiology orders were placed. Cardiology Orders No cardiology orders were placed. This statement is to verify that DEANA SOMERS was seen at [facility] on ,10/14/2018 02:02:13. This is not a work excuse, if a work excuse was needed it will be in addition to this statement as a separate form. IMPORTANT: The examination and treatment you have received in the Emergency Department has been done to provide an appropriate evaluation and stabilizing treatment on an emergency basis only. Given the limited resources, it is not meant to be a substitute for complete medical care. The follow-up doctor you named will receive a copy of your records and all test reports. IT IS IMPORTANT THAT YOU SCHEDULE A FOLLOW-UP APPOINTMENT AND ARE RE-EVALUATED. You should report any new complaints, symptoms, or remaining problems at that time. IT IS IMPOSSIBLE FOR THE EMERGENCY DEPARTMENT TO RECOGNIZE AND TREAT ALL ELEMENTS OF INJURY OR ILLNESS IN A SINGLE VISIT. If you have been referred to a specialist physician, it means that we believe you may have a condition that requires the expertise of a specialist. KEEP IN MIND THAT THE SPECIALIST HAS HIS/HER OWN OFFICE POLICIES WHICH MAY REQUIRE PROPER INSURANCE OR PAYMENT UP FRONT BEFORE THE SPECIALIST WILL SEE YOU. It is your responsibility to call the specialist physician to make an appointment. We do not have the ability to identify specialists/physicians that work with specific insurance companies. Please be advised that all financial charges or billing practices are determined by that practice, not the hospital. If your insurance company requires that you see a specialist from their approved list, it is your responsibility to contact your insurance company to make those arrangements. It is also your responsibility to follow any other requirements of your insurance company necessary to obtain coverage for claims submitted. If you had special tests, such as EKG???s or X-rays, the interpretation of your tests given to you by the Emergency Dept. Physician is a preliminary report. Some fractures and illnesses fail to show up on preliminary tests. We will review them again within 24-48 hours. We will call you if there are any new suggestions. If your symptoms continue notify your physician. After you leave, you should follow the instructions below. In all events, you may obtain a copy of your Emergency Department visit from Medical Records. Please call to be directed to this department. We will bill your insurance; however, you are responsible today for any co-pay amounts. You will receive a separate bill for any services you may have received including: emergency, radiology, or pathology physicians. Please be sure we have an accurate contact phone number and address, should we need to call you for any reason. CIGARETTE SMOKING: The facts are clear; cigarette smoking will shorten your life. Smoking can cause many illnesses along the way. As a healthcare provider, [place] recommends that you stop smoking. Assistance with quitting is available by contacting 1-463-MRBY-NOW. This is a free resource providing counseling, support, and referral. Or you may contact your personal physician. As part of your treatment plan, [...] cramping, rapid heartbeat, difficulty sleeping, and nervousness. The home medications listed are only as accurate as the information you provided. Please continue taking all of your medications prescribed by your Primary Care Provider unless specifically told to change or discontinue the medication. Please direct any questions regarding your home medications to your Primary Care Provider. YOU ARE THE MOST IMPORTANT FACTOR IN YOUR RECOVERY. ?? Follow your instructions carefully ?? Take your medicines as prescribed ?? Most important, see a provider as discussed. If you do not have a provider, we can provide a list of clinics Confidential This message and accompanying documents are covered by Electronic Communications Privacy Act 18 U.S.C. ???Sections 3318-2501,?? and contain information intended for the specified individual(s) only. This information is confidential. If you are not the intended recipient or an agent responsible for delivering it to the intended recipient, you are hereby notified that you have received the document in error and that any review, dissemination, copying, or the taking of any action based on the contents of this information is strictly prohibited. If you have received this communication in error, please notify us immediately by email, and delete the original message. 4 WAYS TO GET AHEAD OF SEPSIS [...] Fibrillation (irregular heartbeat) Family history of stroke Acknowledgment I hereby acknowledge receipt of these instructions and information above. I understand that I have received Emergency Treatment only which is not a substitute for complete medical care and acknowledge that all of my medical problems may not be known, identified, or treated prior to my release. I UNDERSTAND THE NEED TO ARRANGE FOLLOW-UP CARE WITH THE PHYSICIAN INDICATED. I UNDERSTAND THAT I SHOULD CONTACT MY PHYSICIAN IMMEDIATELY OR RETURN TO THE EMERGENCY DEPARTMENT IF MY CONDITION WORSENS, FAILS TO IMPROVE, OR NEW SYMPTOMS APPEAR. Vital Signs B/P PULSE RESP. RATE TEMPERATURE PULSE OX Signature of Emergency Provider Date / Time Signature of Emergency Nurse Date / Time Reminder: Be sure to sign up for the [facility] patient portal, which gives you 31/03 access to your medical information ??? including these discharge instructions ??? using your computer, smartphone, or tablet. Just go to [employer] to get started. Questions? Call . Acknowledgment I hereby acknowledge receipt of these instructions and information above. I understand that I have received Emergency Treatment only which is not a substitute for complete medical care and acknowledge that all of my medical problems may not be known, identified, or treated prior to my release. I UNDERSTAND THE NEED TO ARRANGE FOLLOW-UP CARE WITH THE PHYSICIAN INDICATED. I UNDERSTAND THAT I SHOULD CONTACT MY PHYSICIAN IMMEDIATELY OR RETURN TO THE EMERGENCY DEPARTMENT IF MY CONDITION WORSENS, FAILS TO IMPROVE, OR NEW SYMPTOMS APPEAR. Signature of Patient / Responsible Person Date / Time Please provide a telephone number where you can be reached. The best time to call is between: It is permissible to leave a message if no answer: Yes____ No____ Nurse Providing Instructions: Emergency Physician: documented in this encounter Plan of Treatment Not on file documented as of this encounter Visit Diagnoses Not on filedocumented in this encounter
--- OUTSIDE RECORDS SUMMARY | 2025-03-27 19:05 | XMS_ITS | Encounter Summary ---
Author Organization [employer] ([place], [place], [place], [place]) Address [address] [place] [address] Care Team Providers Care Equipment Sterilizer Name Role Phone Unavailable Primary Care Provider Unavailabl e Encounter Details Date Type Department Care Team (Late st Contact Info) Description 11/05/2018 Transcribed Document [facility] [place] Family Medicine [facility] [place] [address] ProviderPaul MD [address] [place] [address] Social History Tobacco Use Types [...] Conversion Note - Historical ProviderMD - 11/05/2018 1:00 PM INTERPRETER DEAF [place] Pre[facility] Summary Primary Physician: TIARRA DE LOS SANTOS MD-GAE Finalized Date/Time: 11/05/18 12:32:30 Pt. Name: DEANA SOMERS/Sex: 1970 Male Med Rec #: [id number] Physician: TIARRA DE LOS SANTOS MD-GAE Financial #: [id number] Pt. Type: O Room/Bed: [facility] [place]/ Admit/Disch: 11/05/18 11:41:00 - Institution: [place] PreOp Case Times Entry 1 In Preop 11/05/18 12:04:00 Ready for Holding n/a Room Patient Ready for 11/05/18 12:31:00 Surgery Patient Out of Preop 11/05/18 12:31:00 Patient Out of n/a Holding Room [facility] PreOp Case Times Audit 11/05/18 12:31:38 Insole Tacker: EDMUNDO Modifier: EDMUNDO <+> 1 Patient Out of Preop <+> 1 Patient Ready for Surgery Finalized By: BENJAMIN MULLEN RN Document Signatures Signed By: BENJAMIN MULLEN RN 11/05/18 12:32 documented in this encounter Plan of Treatment Not on file documented as of this encounter Visit Diagnoses Not on filedocumented in this encounter
--- OUTSIDE RECORDS SUMMARY | 2025-03-27 19:05 | XMS_ITS | Encounter Summary ---
Author Organization [employer] ([place], [place], [place], [place]) Address [address] [place] [address] Care Team Providers Care Breakdown Worker Name Role Phone Unavailable Primary Care Provider Unavailabl e Encounter Details Date Type Department Care Team (Late st Contact Info) Description 10/14/2018 Transcribed Document [facility] [place] [facility] [place] [address] ProviderPaul MD [address], [place] [id number] Social History Tobacco Use Types Packs/Day Years Used Date Smoking Tobacco: Never Assessed Sex and Gender Information Value Date Recorded Sex Assigned at Male 03/07/2022 4:44 PM CDT Legal Sex Male 6:27 PM CDT Gender Identity Male 03/07/2022 4:44 PM CDT Sexual Orientation Not on file documented as of this encounter Miscellaneous Notes * [employer] Conversion Note - Historical ProviderMD - 10/14/2018 1:31 AM [employer] Electronically signed by Chava [facility] Conversion Slicing Machine Feeder Cerner at 12/22/2022 7:30 PM CDT documented in this encounter Plan of Treatment Not on file documented as of this encounter Visit Diagnoses Not on filedocumented in this encounter
--- OUTSIDE RECORDS SUMMARY | 2025-03-27 19:05 | XMS_ITS | Encounter Summary ---
Author Organization [employer] ([place], [place], [place], [place]) Address [address] [place] [address] Care Team Providers Care Aircraft Part Assembler Name Role Phone Unavailable Primary Care Provider Unavailabl e Encounter Details Date Type Department Care Team (Late st Contact Info) Description 10/13/2018 Transcribed Document [facility] [place] [facility] [place] [address] ProviderPaul MD [address] [place], [place] [id number] Social History Tobacco Use Types Packs/Day Years Used Date Smoking Tobacco: Never Assessed Sex and Gender Information Value Date Recorded Sex Assigned at Male 03/07/2022 4:44 PM CDT Legal Sex Male 6:27 PM CDT Gender Identity Male 03/07/2022 4:44 PM CDT Sexual Orientation Not on file documented as of this encounter Miscellaneous Notes * [employer] Conversion Note - Historical ProviderMD - 10/13/2018 12:41 PM APPLICATION COUNSELOR Patient: DEANA KING Age: 48 years Sex: Male : 1970 Associated Diagnoses: None Author: TIARRA DE LOS SANTOS MD-ARIANNA Basic Information Referral source: Emergency department. Chief Complaint 10/13/2018 22:28 EST pt was eating a roast this evening and felt it get caught. pt went to OSH and was sent here for further eval. skin pwd, resp even and nonlabored. Dysphagia History of Present Illness patient presented to [facility] emergency room shortly after eating some roast and they determined that he likely had an esophageal meat impaction. He was given glucagon and nitroglycerin in the emergency room and did not have any relief of the food impaction. He was referred to our hospital for evaluation and removal of the food impaction. He tells me that he has had problems in the past with food getting seconds esophagus. He has not seen a physician about this problem. He has some long-term acid reflux and occasionally uses omeprazole [id number] to control the symptoms. He has not had any recent weight loss. He is a heavy drinker on occasion. He does not take any regular medications aside from the occasional omeprazole. He has not had any abdominal surgery. He is not aware of any food allergies. Histories Past Medical History: No active or resolved past medical history items have been selected or recorded. Procedure history: No active procedure history items have been selected or recorded., Right thumb surgery. Social History Social & Psychosocial Habits No Data Available . Family History: No family history items have been selected or recorded., Brother has had problems with dysphagia and esophageal stricture. Health Status Allergies: Allergic Reactions (All) No Known Medication Allergies, Allergies (1) Active Reaction No Known Medication Allergies None Documented Current medications: (Selected) , No qualifying data available , Omeprazole 20 mg as needed Problem list: Medical Diverticulitis of both large and small intestine with perforation and abscess / SNOMED CT 464013566 / Confirmed Acid reflux disease / SNOMED CT 481632233 / Confirmed, Active Problems (2) Acid reflux disease Diverticulitis of both large and small intestine with perforation and abscess Review of Systems Constitutional: No fever, No chills, No weight gain, No weight loss. Eye: No recent visual problem, No blurring. Ear/Nose/Mouth/Throat: Dysphagia, No epistaxis, No hoarse voice, No sore throat. Respiratory: No shortness of breath, No cough, No hemoptysis. Cardiovascular: Chest pain, No palpitations, No claudication. Gastrointestinal: Heartburn, Belching, No nausea, No vomiting, No diarrhea, No constipation, No bloating, No abdominal pain, No hematemesis, No change in bowel habits, No melena, No rectal bleeding. Genitourinary: No dysuria, No hematuria. Hematology/Lymphatics: No bruising tendency, No bleeding tendency. Endocrine: No excessive thirst, No cold intolerance, No heat intolerance. Musculoskeletal: No joint pain, No muscle pain, No gait disturbance, No joint redness. Integumentary: No rash, No pruritus. Neurologic: No confusion, No dizziness, No headache, No seizure. Psychiatric: No anxiety, No depression. the rest of the 10 system review is negative Physical Examination VS/Measurements Vitals Signs (last 24 hrs) Last Charted Minimum Maximum Temp L 95.3 (OCT 14 01:45) L 95.3 (OCT 14 01:45) L 96.5 (OCT 13 22:28) Mon HR 75 (OCT 14 01:45) 74 (OCT 14 01:15) 96 (OCT 13 23:55) Periph HR 93 (OCT 13 22:28) 93 (OCT 13 22:28) 93 (OCT 13 22:28) Resp Rate 19 (OCT 14 01:45) L 13 (OCT 13 23:50) H 24 (OCT 14 01:15) SBP 112 (OCT 14 01:45) 105 (OCT 13 23:55) 139 (OCT 13 22:28) DBP 78 (OCT 14 01:45) 72 (OCT 14 00:30) H 91 (OCT 13 22:28) MAP 93 (OCT 14 01:31) 87 (OCT 14 00:30) 97 (OCT 14 01:15) SpO2 96 (OCT 14 01:45) L 90 (OCT 13 23:50) 98 (OCT 13 23:12) General: Mild distress. Appearance: Well nourished. Eye: Pupils are equal, round and reactive to light, Extraocular movements are intact, Normal conjunctiva. Sclera: Both eyes, Within normal limits. HENT: Normocephalic, Normal hearing, Oral mucosa is moist. Nose: Both nostrils, Within normal limits, Patent. Mouth: pink. Neck: Supple, Non-tender, No carotid bruit, No jugular venous distention. Respiratory: Lungs are clear to auscultation, Respirations are non-labored, Breath sounds are equal. Pattern: Regular. Cardiovascular: Normal rate, Regular rhythm, No murmur, No gallop, No edema. Arterial pulses: Bilateral, Dorsalis pedis, Within normal limits. Gastrointestinal: Soft, Non-tender, Non-distended, Normal bowel sounds, No organomegaly. Abdomen: Liver ( Within normal limits ). Lymphatics: Lymphatic exam: Bilateral, Cervical chain, Inguinal, Within normal limits. Musculoskeletal: Normal range of motion, Normal strength, No tenderness, No deformity, Normal gait. Integumentary: Warm, Dry, [place], No rash. Integumentary exam: Face, Chest, Arm, Abdomen, Leg. Neurologic: Alert, Oriented, No focal deficits. Orientation: To person, To place, To time. Psychiatric: Cooperative, Appropriate mood & affect, Normal judgment. Review / Management Results review: No qualifying data available. Impression and Plan food impaction: This could be related to acid reflux and a stricture or eosinophilic esophagitis. We will likely remove the food impaction and wait for a week or 2 to biopsy and dilate the esophagus. Patient is advised to use his omeprazole on a daily basis and to food well until we can definitively manage his esophageal stricture. documented in this encounter Plan of Treatment Not on file documented as of this encounter Visit Diagnoses Not on filedocumented in this encounter
--- OUTSIDE RECORDS SUMMARY | 2025-03-27 19:05 | XMS_ITS | Referral Summary ---
Author Organization [employer] ([place], [place], [place], [place]) Address [address] [place] [address] Care Team Providers Care Offset Platemaker Name Role Phone Unavailable Primary Care Provider Unavailabl e Social History Tobacco Use Types Packs/Day Years Used Date Smoking Tobacco: Never Assessed Sex and Gender Information Value Date Recorded Sex Assigned at Male 03/07/2022 4:44 PM CDT Legal Sex Male 6:27 PM CDT Gender Identity Male 03/07/2022 4:44 PM CDT Sexual Orientation Not on file Plan of Treatment Not on file
--- OUTSIDE RECORDS SUMMARY | 2025-03-27 19:05 | XMS_ITS | Encounter Summary ---
Author Organization [employer] ([place], [place], [place], [place]) Address [address] [place] [address] Care Team Providers Care Montessori Teacher Name Role Phone Unavailable Primary Care Provider Unavailabl e Encounter Details Date Type Department Care Team (Late st Contact Info) Description 10/14/2018 Transcribed Document [facility] [place] [facility] [place] [address] ProviderPaul MD [address], [place] [phone] Social History Tobacco Use Types Packs/Day Years Used Date Smoking Tobacco: Never Assessed Sex and Gender Information Value Date Recorded Sex Assigned at Male 03/07/2022 4:44 PM CDT Legal Sex Male 6:27 PM CDT Gender Identity Male 03/07/2022 4:44 PM CDT Sexual Orientation Not on file documented as of this encounter Miscellaneous Notes * Cerner Conversion Note - Historical ProviderMD - 10/14/2018 2:01 AM COIL MACHINE OPERATOR ED Discharge Entered On: 10/14/2018 2:01 EST Performed On: 10/14/2018 2:01 EST by ARLEN CORNEJO RN Discharge Process Patient Disposition : Discharge Personal Belongings With Patient : Yes Patient Education Completed : Yes Teaching Evaluation : Verbalizes understanding IV Discontinued : Yes ARLEN CORNEJO RN - 10/14/2018 2:01 EST ED Discharge Discharge To : Home with ambulatory/outpatient follow-up Mode Of Departure : Wheelchair Accompanied By : Sibling Discharge Instructions Reviewed With, Opportunity For Questions Given : Patient Prescriptions Given to Patient : No ARLEN CORNEJO RN - 10/14/2018 2:01 EST documented in this encounter Plan of Treatment Not on file documented as of this encounter Visit Diagnoses Not on filedocumented in this encounter
--- OUTSIDE RECORDS SUMMARY | 2025-03-27 19:05 | XMS_ITS | Clinical Summary ---
Author Organization [employer] ([place], [place], [place], [place]) Address [address] [place] [address] Care Team Providers Care Social Work Supervisor Name Role Phone Unavailable Primary Care Provider [...]
--- OUTSIDE RECORDS SUMMARY | 2025-03-27 19:05 | XMS_ITS | Clinical Summary ---
Author Organization Healthcare Address [address] [place] [address] Care Team Providers Care Electron Beam Photo Mask Maker Name Role Phone Unavailable Primary Care Provider Unavailabl e Family History Medical History Relation Name Comments COPD Mother Hypertension Mother Relation Name Status Comments Mother Social History Tobacco Use Types Packs/Day Years Used Date Smoking Tobacco: Every Day Alcohol Use Standard Drinks/Week Comments Yes 0 (1 standard drink = 0.6 oz pur e alcohol) Sex and Gender Information Value Date Recorded Sex Assigned at Not on file Legal Sex Male 6:31 PM EDT Gender Identity Not on file Sexual Orientation Not on file Last Filed Vital Signs Vital Sign Reading Time Taken Comments Blood Pressure - - Pulse - - Temperature - - Respiratory Rate - - Oxygen Saturation - - Inhaled Oxygen Concentration - - Weight 77.1 kg (170 lb) 12/22/2013 12:47 PM EDT Height 167.6 cm (5' 6 ) 12/22/2013 12:47 PM EDT Body Mass Index 27.44 12/22/2013 12:47 PM EDT Plan of Treatment Not on file
--- OUTSIDE RECORDS SUMMARY | 2025-03-27 19:05 | XMS_ITS | Encounter Summary ---
Author Organization [employer] ([place], [place], [place], [place]) Address [address] [place] [address] Care Team Providers Care Special Forces Communications Sergeant Name Role Phone Unavailable Primary Care Provider Unavailabl e Encounter Details Date Type Department Care Team (Late st Contact Info) Description 11/05/2018 Transcribed Document [facility] [place] Family Medicine [address] [place] [address] ProviderPaul MD [address] [place], [place] [address] Social History Tobacco Use Types Packs/Day Years Used Date Smoking Tobacco: Never Assessed Sex and Gender Information Value Date Recorded Sex Assigned at Male 03/07/2022 4:44 PM CDT Legal Sex Male 6:27 PM CDT Gender Identity Male 03/07/2022 4:44 PM CDT Sexual Orientation Not on file documented as of this encounter Miscellaneous Notes * Cerner Conversion Note - Historical ProviderMD - 11/05/2018 1:28 PM WORKDAY CONSULTANT Discharge Instructions Entered On: 11/05/2018 13:28 EST Performed On: 11/05/2018 13:28 EST by Arlene Irving RN DC Instructions HWD Stroke/TIA Discharge Ins : N/A Heart Failure Discharge Ins : N/A Warfarin Discharge Ins : N/A Diet After Discharge : Regular diet as tolerated Activity After Discharge : Rest and relax today, No strenuous activities May Return To Work/School : Tomorrow Notify Provider of : Any questions or concerns Arlene Irving RN - 11/05/2018 13:28 EST Electronically signed by Chava [facility] Conversion Sleep Tech Cerner at 12/22/2022 7:39 PM CDT documented in this encounter Plan of Treatment Not on file documented as of this encounter Visit Diagnoses Not on filedocumented in this encounter
--- OUTSIDE RECORDS SUMMARY | 2025-03-27 19:05 | XMS_ITS | Encounter Summary ---
Author Organization [employer] ([place], [place], [place], [place]) Address [address] [place] [address] Care Team Providers Care Clinical Trial Data Manager Name Role Phone Unavailable Primary Care Provider Unavailabl e Encounter Details Date Type Department Care Team (Late st Contact Info) Description 11/05/2018 Transcribed Document [facility] [place] [facility] [place] [address] ProviderPaul MD [address], [place] [phone] Social History Tobacco Use Types Packs/Day Years Used Date Smoking Tobacco: Never Assessed Sex and Gender Information Value Date Recorded Sex Assigned at Male 03/07/2022 4:44 PM CDT Legal Sex Male 6:27 PM CDT Gender Identity Male 03/07/2022 4:44 PM CDT Sexual Orientation Not on file documented as of this encounter Miscellaneous Notes * Cerner Conversion Note - Historical ProviderMD - 11/05/2018 12:08 PM 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 Pre Procedure Adult Entered On: 11/05/2018 12:14 EST Performed On: 11/05/2018 12:08 EST by BENJAMIN MULLEN RN Height and Weight, Clinical Dosing Height Source : Stated Height Entry Format : Tripp Height, Feet : 5 ft(Converted to: 152 cm, 60 Inch) Height, Inches : 7 Inch(Converted to: 0 ft 7 Inch, 17.78 cm) Clinical Height : 170.18 cm Weight Source : Standing scale Weight Entry Format : Tripp Clinical Dosing Weight : 78.35 kg Weight, Pounds : 172 lb Weight, Ounces : 6 oz Body Surface Area (BSA) : 1.9 m2 Body Mass Index : 27.1 kg/m2 (HI) [place] Body Weight : 65 kg BENJAMIN MULLEN RN - 11/05/2018 12:08 EST Health Histories Smoking Status : 10 or more cigarettes (1/2 pack or more)/day in last 30 days Smokeless Tobacco Status : Never Desires Tobacco Cessation Medication : No Reason for No Tobacco Cessation Medication : Refuses FDA approved medications BENJAMIN MULLEN RN - 11/05/2018 12:08 EST Social History (As Of: 11/05/2018 12:14:40 EST) Tobacco: 10 or more cigarettes (1/2 pack or more)/day in last 30 days Smoking Status. Never Smokeless Tobacco Status. (Last Updated: 11/05/2018 12:07:27 EST by BENJAMIN MULLEN RN) Alcohol: Alcohol Use History Yes. Use in Last 12 Months: Yes. Alcohol Use Frequency Weekly. (Last Updated: 11/05/2018 12:07:51 EST by BENJAMIN MULLEN RN) Substance Abuse: Drug Use Hx: No. (Last Updated: 11/05/2018 12:07:56 EST by BENJAMIN MULLEN RN) Nutrition/Health: Caffeine intake amount: coffee/soda daily. (Last Updated: 11/05/2018 12:08:16 EST by BENJAMIN MULLEN RN) Infectious Disease History Infectious Disease History : Chicken pox/Shingles, Influenza Fever/Chills Last 48 Hours : No Travel To Regions with Travel Advisories : No Travel Outside [place] Within Last 30 Days : No Contact With Traveler to Advisory Region : No Tuberculosis Symptoms : None BENJAMIN MULLEN RN - 11/05/2018 12:08 EST Anesthesia/Transfusion History Family History of Anesthesia Reaction : No prior transfusion(s) Transfusion History : Prior anesthesia without reaction Family History of Anesthesia Reaction : None BENJAMIN MULLEN RN - 11/05/2018 12:08 EST Functional Assessment Living Situation : Home Patient Lives With : Alone Current Home Treatments : None BENJAMIN MULLEN RN - 11/05/2018 12:08 EST Psychosocial History Do You Have a History of the Following? : Patient denies history Currently in Unsafe Situation : No Tried to Harm Yourself in the Past? : No Thoughts of Harming/Killing Yourself : No BENJAMIN MULLEN RN - 11/05/2018 12:08 EST Advance Directive Patient has Advance Directive *Q : No, patient refuses Advance Directive information BENJAMIN MULLEN RN - 11/05/2018 12:08 EST Teaching/Learning Assessment Barriers To Learning : None evident Individuals Taught : Patient Readiness to Learn : Cooperative Baseline Knowledge of Topic : Good Readiness to Learn : Explanation, Printed materials Learning Style Preferences Patient : Printed materials, Verbal explanation BENJAMIN MULLEN RN - 11/05/2018 12:08 EST General Info Arrived From : Home Mode of Arrival on Unit : Ambulatory Legal Guardian : Significant other Want Family/Rep/Phys Notified of Admit : Yes Name/Contact Info Fam/Rep Notified Adm : elliot mullen Name/Contact Info Physician Notified Adm : none Emergency Contact #1 : elliot mullen Emergency Contact #1 Emergency Contact #1 Relationship : sig other Emergency Contact #2 : none Emergency Contact #2 Phone Number : none Emergency Contact #2 Relationship : none Information Obtained From : Patient Primary Language : Amharic Communication Barrier : None Objects to Sharing Info w Family : No BENJAMIN MULLEN RN - 11/05/2018 12:08 EST Sleep Apnea Risk Assmt Hx of Obstructive Sleep Apnea Diagnosis : No Snore Loudly : No Tired, Fatigued, or Sleepy During Day : No Observed Stopping Breathing During Sleep : No Have/Are Being Treated for Hypertension : No STOP Sleep Apnea Risk Level Score : 0 STOP Sleep Apnea Risk Level : Low BMI Greater Than 35 kg/m2 : No Age over 50 Years Old : No Gender Male : Yes Neck Circumference Measured (cms) : 39.5 cm STOP-BANG Sleep Apnea Risk Level Score : 1 Neck Circumference Greater Than 40 cm : No BENJAMIN MULLEN RN - 11/05/2018 12:08 EST Manuel Scale Manuel Sensory Perception : No impairment Manuel Moisture : Rarely moist Manuel Activity : Walks frequently Manuel Mobility : No limitation Manuel Nutrition : Adequate Manuel Friction and Shear : No apparent problem Manuel Score : 22 BENJAMIN MULLEN RN - 11/05/2018 12:08 EST Pain Assessment Pain Assessment : Initial assessment Pain Scl Goal Comment : 5 Pain Scale Used : 0-10 Scale BENJAMIN MULLEN RN - 11/05/2018 12:08 EST Fall Risk Scales ABCs Fall Injury Risk Identification : None HOLT Hx Falls Immediate/Within 3 Months : No Holt Secondary Diagnosis : No HOLT Use of Ambulatory Aid : None HOLT IV Therapy or IV Access : Yes Holt Gait/Transferring : Normal, bedrest, immobile Holt Mental Status : Oriented to own ability Holt Fall Risk Score : 20 HOLT Fall Scale Risk Level : 0-24 Low Risk [place] Fall Interventions : Adequate lighting, Assistive devices within reach, Bed in low position, Call device within reach, Fall prevention handout/education per facility policy, Frequent orientation to call device, Frequent orientation to surroundings, Hourly comfort/safety rounds, Non-slip footwear, Personal items within reach, Reinforced to call for assistance before getting out of bed, Room free of clutter/spills, Upper side-rails up, Wheels locked, Wires/Cords secured BENJAMIN MULLEN RN - 11/05/2018 12:08 EST Valuables and Belongings Valuables and Belongings : Clothing Clothing : Common streetwear Clothing Disposition : Bedside, Other: girlfriend BENJAMIN MULLEN RN - 11/05/2018 12:08 EST Pain Scale Intensity : 0 BENJAMIN MULLEN RN - 11/05/2018 12:08 EST Image 4 - Images currently included in the form version of this document have not been included in the text rendition version of the form. Electronically signed by Sherita Larsen Conversion Pump Installation And Servicer Cerner at 12/22/2022 7:40 PM CDT documented in this encounter Plan of Treatment Not on file documented as of this encounter Visit Diagnoses Not on filedocumented in this encounter
--- OUTSIDE RECORDS SUMMARY | 2025-03-27 19:05 | XMS_ITS | Encounter Summary ---
Author Organization [employer] ([place], [place], [place], [place]) Address [address] [place] [address] Care Team Providers Care Holiday Detector Operator Name Role Phone Unavailable Primary Care Provider Unavailabl e Encounter Details Date Type Department Care Team (Late st Contact Info) Description 11/05/2018 Transcribed Document [facility] [place] [facility] [place] [address] ProviderPaul MD [address] [place], [place] [phone] Social History Tobacco Use Types Packs/Day Years Used Date Smoking Tobacco: Never Assessed Sex and Gender Information Value Date Recorded Sex Assigned at Male 03/07/2022 4:44 PM CDT Legal Sex Male 6:27 PM CDT Gender Identity Male 03/07/2022 4:44 PM CDT Sexual Orientation Not on file documented as of this encounter Miscellaneous Notes * Cerner Conversion Note - Historical ProviderMD - 11/05/2018 1:35 PM TECHNOLOGY ADVISOR Patient Education Materials Follows: Esophagitis Introduction Esophagitis is inflammation of the [...] vinegar, hot sauces, and barbecue sauce. ? [place] fruit juices and citrus fruits, such as oranges, lesa, and limes. ? Tomato-based foods, such as red sauce, chili, salsa, and pizza with red sauce. ? Fried and fatty foods, such as donuts, english fries, potato chips, and high-fat dressings. ? [...] any changes in your symptoms. ??? Take [id number] and prescription medicines only as told by [...] Garlic and onions. ? Spicy foods. ? [place] fruits, including oranges, lesa, or limes. ? [...] 02/10/2009 Document Revised: 11/16/2012 Document Reviewed: 05/18/2016 [employer] Interactive Patient Education ? 2017 [employer]. Peptic Ulcer A peptic ulcer is a [...] 11/19/2010 Document Revised: 09/15/2015 Document Reviewed: 05/25/2016 [employer] Interactive Patient Education ? 2017 [employer]. Esophagogastroduodenoscopy, Care After Introduction Refer to this [...] 01/30/2017 Document Reviewed: 07/18/2016 ? 2017 [employer] documented in this encounter Plan of Treatment Not on file documented as of this encounter Visit Diagnoses Not on filedocumented in this encounter
--- OUTSIDE RECORDS SUMMARY | 2025-03-27 19:05 | XMS_ITS | Encounter Summary ---
Author Organization [employer] ([place], [place], [place], [place]) Address [address] [place] [address] Care Team Providers Care Service Transformer Repair Supervisor Name Role Phone Unavailable Primary Care Provider Unavailabl e Encounter Details Date Type Department Care Team (Late st Contact Info) Description 11/05/2018 Transcribed Document [facility] [place] [facility] [place] [address] ProviderPaul MD [address], [place] [phone] Social History Tobacco Use Types Packs/Day Years Used Date Smoking Tobacco: Never Assessed Sex and Gender Information Value Date Recorded Sex Assigned at Male 03/07/2022 4:44 PM CDT Legal Sex Male 6:27 PM CDT Gender Identity Male 03/07/2022 4:44 PM CDT Sexual Orientation Not on file documented as of this encounter Miscellaneous Notes * Cerner Conversion Note - Historical ProviderMD - 11/05/2018 12:23 PM 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 Chief Complaint Dysphagia, history of food impaction. Dilation today for history of stricture History of Present Illness patient presented to [facility] emergency room on 10/14 shortly after eating some roast and they [...] long-term acid reflux and occasionally uses omeprazole [id number] to control the symptoms. He has not had any recent weight loss. He is a heavy drinker on occasion. He does not take any regular medications aside from the occasional omeprazole. He has not had any abdominal surgery. He is not aware of any food allergies. EGD 10/13/18 performed in the ER. Foreign body removed, Diffuse esophagitis with possibility of E O E, Distal stricture Erosive gastritis at the GE junction, Gastritis Patient was placed on daily Omeprazole and was asked to return in 2 weeks to our Endoscopy Unit for a dilation, after the esophgus had a chance to heal after the food impaction. He is on a regular ASA. No history of NSIAD's. Histories Past Medical History: Active Dysphagia (41793413) Chest pain ([id number]) Procedure history: Thumb surgery., Right thumb surgery. Social History Social & Psychosocial Habits Alcohol 11/05/2018 Alcohol Use History, Social Habits Yes Alcohol Use in Last Twelve Months Yes Alcohol Use Frequency Weekly Nutrition/Health 11/05/2018 Caffeine intake amount: coffee/soda daily Substance Abuse 11/05/2018 Recreational Drug Use History No Tobacco 11/05/2018 Smoking Status 10 or more cigarettes (1/ Smokeless Tobacco Status Never . Family History: Brother has had problems with dysphagia and esophageal stricture. Health Status Allergies: Allergic Reactions (All) No Known Medication Allergies, Allergies (1) Active Reaction No Known Medication Allergies None Documented Current medications: (Selected) Inpatient Medications Ordered Normal Saline 1,000 mL: 100 mL/Hr, IntraVENous Documented Medications Documented M.V.I. Adult: Oral, Daily, 0 Refill(s) PriLOSEC: 20 mg, Oral, Daily, 0 Refill(s) aspirin: Oral, Daily, 0 Refill(s), Medications (1) Active Scheduled: (0) Continuous: (1) NaCl 0.9% 1,000 mL 1,000 mL, IntraVENous, 100 mL/Hr PRN: (0) , Omeprazole 20 mg as needed Problem list: All Problems Acid reflux disease / SNOMED CT 797199411 / Confirmed Chest pain / SNOMED CT 05147603 / Confirmed Diverticulitis of both large and small intestine with perforation and abscess / SNOMED CT 504023171 / Confirmed Dysphagia / SNOMED CT 32325186 / Confirmed, Active Problems (4) Acid reflux disease Chest pain Diverticulitis of both large and small intestine with perforation and abscess Dysphagia Review of Systems Constitutional: No fever, No chills, No weight gain, No weight loss. Eye: No recent visual problem, No blurring. Ear/Nose/Mouth/Throat: Dysphagia, No epistaxis, No hoarse voice, No sore throat. Respiratory: No shortness of breath, No cough, No hemoptysis. Cardiovascular: Chest pain, No palpitations, No claudication. Gastrointestinal Negative other than HPI. Genitourinary: No dysuria, No hematuria. Hematology/Lymphatics: No [...] 24 hrs) Last Charted Minimum Maximum Temp 97.9 (NOV 05 12:26) 97.9 (NOV 05:) 97.9 (NOV 05 12:) Mon HR 73 (NOV 05 12:) 73 (NOV 05 12:26) 73 (NOV 05 12:) Resp Rate 16 (NOV 05 12:) 16 (NOV 05 12:26) 16 (NOV 05 12:) SBP 114 (NOV 05 12:26) 114 (NOV 05 12:26) 114 (NOV 05 12:26) DBP 80 (NOV 05 12:) 80 (NOV 05 12:26) 80 (NOV 05 12:26) SpO2 97 (NOV 05 12:) 97 (NOV 05 12:) 97 (NOV 05 12:) General: Mild distress. Appearance: Well nourished. Eye: [...] No deformity, Normal gait. Integumentary: Warm, Dry, [place], No rash. Integumentary exam: Face, Chest, Arm, Abdomen, Leg. Neurologic: Alert, Oriented, No focal deficits. Orientation: To person, To place, To time. Psychiatric: Cooperative, Appropriate mood & affect, Normal judgment. Review / Management Results review: No qualifying data available. Impression and Plan History of food impaction: History of esophageal stricture. This could be related to acid reflux and a stricture or eosinophilic esophagitis. We will likely remove the food impaction and wait for a week or 2 to biopsy and dilate the esophagus. Patient is advised to use his omeprazole on a daily basis and to food well until we can definitively manage his esophageal stricture. Scribed by Artur Navarro for Dr. Tiarra Espinoza. We dilated the stricture and biopsied to check for EOE. Patient also has an apparent aspirin induced prepyloric ulcer. Professional Services I have Tiarra Espinoza personally interviewed the patient, reviewed the chart, performed the physical exam and formulated the treatment plan. documented in this encounter Plan of Treatment Not on file documented as of this encounter Visit Diagnoses Not on filedocumented in this encounter
--- OUTSIDE RECORDS SUMMARY | 2025-03-27 19:05 | XMS_ITS | Encounter Summary ---
Author Organization [employer] ([place], [place], [place], [place]) Address [address] [place] [address] Care Team Providers Care Beam Department Supervisor Name Role Phone Unavailable Primary Care Provider Unavailabl e Encounter Details Date Type Department Care Team (Late st Contact Info) Description 10/13/2018 Transcribed Document [facility] [place] [facility] [place] [address] ProviderPaul MD [address] [place] [phone] Social History Tobacco Use Types Packs/Day Years Used Date Smoking Tobacco: Never Assessed Sex and Gender Information Value Date Recorded Sex Assigned at Male 03/07/2022 4:44 PM CDT Legal Sex Male 6:27 PM CDT Gender Identity Male 03/07/2022 4:44 PM CDT Sexual Orientation Not on file documented as of this encounter Miscellaneous Notes * Cerner Conversion Note - Paul ProviderMD - 10/13/2018 11:47 PM AQUATIC SCIENTIST DATE OF PROCEDURE: 10/13/2018 ENDOSCOPY NOTE PREOPERATIVE DIAGNOSIS(ES): POSTOPERATIVE DIAGNOSIS(ES): PROCEDURE: Upper endoscopy and foreign body extraction. SURGEON: Esther Espinoza MD INDICATION: Patient had a foreign body obstruction. MEDICATIONS USED: 1. Fentanyl 100 mcg. 2. Versed 8 mg IV. PROCEDURE IN DETAIL: The patient was placed in the left lateral decubitus position in the emergency room bed. The endoscope was inserted under direct vision to the esophagus. In the distal esophagus, a large foreign body that was a large piece of meat was encountered. This was grasped with a snare and partially removed and then the rest of the foreign body was pushed into the stomach. The esophagus was diffusely edematous with multiple rings with a distal ring and erosions. The stomach had gastritis. The duodenum was normal. Retroflexed view did not reveal a hiatal hernia. There was a small puddle of fluid and retained food in the fundus. The scope was withdrawn. The patient tolerated the procedure well. IMPRESSION: 1. Foreign body removed. 2. Diffuse esophagitis with possibility of the eosinophilic esophagitis. 3. Distal stricture. 4. Erosive esophagitis at the gastroesophageal junction. 5. Gastritis. PLAN: Plan is to have the patient start on daily omeprazole and have him come back to the endoscopy unit in one to two weeks to have an upper endoscopy with dilation after the esophagus has had a chance to heal from the meat impaction. Esther Espinoza M.D. Dict: 10/13/2018 23:47:24 Trans: 10/14/2018 02:45:56 CC1: Esther Espinoza M.D. documented in this encounter Plan of Treatment Not on file documented as of this encounter Visit Diagnoses Not on filedocumented in this encounter
--- OUTSIDE RECORDS SUMMARY | 2025-03-27 19:05 | XMS_ITS | Encounter Summary ---
Author Organization [facility] ([place], [place], [place], [place]) Address [address] [place] [address] Care Team Providers Care Restaurant Associate Name Role Phone Unavailable Primary Care Provider Unavailabl e Encounter Details Date Type Department Care Team (Late st Contact Info) Description 11/05/[address] 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 Name: DEANA SOMERS /Sex: 1970 Male Med Rec #: [id number] Physician: TIARRA DE LOS SANTOS MD-GAE Financial #: [id number] Pt. Type: O Room/Bed: [facility] Admit/Disch: 11/05/18 11:41:00 - Institution: [facility] - Case Attendance Entry 1 Entry 2 Entry 3 Case Attendee TIARRA DE LOS SANTOS MD-GAE Hamlin, Sherri, DUNG NEUMANN Role Performed Surgeon/Proceduralist, Help Desk Associate, First Scrub, First First Time In 11/05/18 12:39:00 11/05/18 12:39:00 11/05/18 12:39:00 Time Out 11/05/18 12:55:00 11/05/18 12:55:00 11/05/18 12:55:00 Procedure Esophagogastroduodenosco Esophagogastroduodenosco Esophagogastroduodenosco py, Gastric Biopsy, py, Gastric Biopsy, py, Gastric Biopsy, Esophageal Dilatation Esophageal Dilatation Esophageal Dilatation Other Attendee Superficial Wound Closed By: Last Modified By: Toña Hastings, Toña Galvan, Toña Galvan, KVNG 11/05/18 12:56:23 11/05/18 12:56:23 11/05/18 12:56:23 Entry 4 Case Attendee FORREST ARVIZU CRNA Role Performed WINE SPECIALIST/Nurse Fuel Conversion Technician Time In 11/05/18 12:39:00 Time Out 11/05/18 12:55:00 Procedure Esophagogastroduodenosco py, Gastric Biopsy, Esophageal Dilatation Other Attendee Superficial Wound Closed By: Last Modified By: Toña Hastings RN 11/05/18 12:56:23 [facility] - Case Attendance Audit 11/05/18 12:56:23 Compliance Clerk: [email or web address] Modifier: [email or web address] 1 <+> Time Out 1 <*> Procedure Esophagogastroduodenoscopy, Gastric Biopsy, Esophageal Dilatation 2 <+> Time Out 2 <*> Procedure Esophagogastroduodenoscopy, Gastric Biopsy, Esophageal Dilatation 3 <+> Time Out 3 <*> Procedure Esophagogastroduodenoscopy, Gastric Biopsy, Esophageal Dilatation 4 <+> Time Out 4 <*> Procedure Esophagogastroduodenoscopy, Gastric Biopsy, Esophageal Dilatation 11/05/18 12:49:44 Compliance Clerk: [email or web address] Modifier: [email or web address] 1 <*> Procedure Esophagogastroduodenoscopy 2 <*> Procedure Esophagogastroduodenoscopy 3 <*> Procedure Esophagogastroduodenoscopy 4 <*> Procedure Esophagogastroduodenoscopy 11/05/18 12:42:46 Compliance Clerk: [email or web address] Modifier: [email or web address] <+> 1 Procedure 2 <*> Procedure Esophagogastroduodenoscopy 3 <*> Procedure Esophagogastroduodenoscopy 4 <*> Procedure Esophagogastroduodenoscopy 11/05/18 12:42:20 Compliance Clerk: [email or web address] Modifier: [email or web address] <+> 1 Time In 2 <+> Time In 2 <*> Procedure Esophagogastroduodenoscopy 3 <+> Time In 3 <*> Procedure Esophagogastroduodenoscopy 4 <+> Time In 4 <*> Procedure Esophagogastroduodenoscopy [facility] - Case Times Entry 1 Patient In Room Time 11/05/18 12:39:00 Out Room Time 11/05/18 12:55:00 Anesthesia Start Time 11/05/18 12:39:00 Stop Time 11/05/18 12:55:00 Anesthesia Ready 11/05/18 12:39:00 Surgery / Procedure Times Start Time 11/05/18 12:46:00 Stop Time 11/05/18 12:53:00 Last Modified By: Toña Hastings RN 11/05/18 12:55:56 [facility] - Case Times Audit 11/05/18 12:55:56 Compliance Clerk: [email or web address] Modifier: [email or web address] <+> 1 Start Time 11/05/18 12:54:01 Compliance Clerk: [email or web address] Modifier: [email or web address] <+> 1 Out Room Time <+> 1 Stop Time <+> 1 Stop Time [facility] - Cultures and Spec Summary Entry 1 Cultrures and Specimens Specimen Ordered: Yes Specimens Types Pathology Specimen(s) Labeled Pathology and Sent to Last Modified By: Toña Hastings RN 11/05/18 12:50:32 General Comments: GASTRIC BX, MID ESOPHAGEAL BX, DISTAL ESOPHAGEAL BX [facility] - Delays Entry 1 Delay Reason Other Duration 0 Minute(s) Comment NO DELAY Last Modified By: Toña Hastings RN 11/05/18 12:40:14 [facility] - Departure from OR Entry 1 Integumentary Assessment Integumentary WDL Assessment WDL Transfer/Handoff Transfer to PACU Phase I Handoff Reported to BUDDY WILD RN Post-op Transport Stretcher/Kailey Via Patient Transport Toña Hastings RN, Accompanied by FORREST ARVIZU CRNA Last Modified By: Toña Hastings RN 11/05/18 12:40:26 [facility] - Endoscopy Details Entry 1 Entry 2 Abdomen Procedure Soft, Non-Tender Soft, Non-Tender Assessment Abdomen Procedure Assessment Other Procedure Abdomen 11/05/18 12:40:00 11/05/18 12:50:00 Assessment D/T Dilators Balloon Dilator Size 18-20 Dilator Comment Radio Frequency Ablation Ablation Type Device Serial Number/Hospital ID Number Energy Settings J/cm2 Ablation Catheter Size mm Sizing Balloon Top of the Gastric Folds Top of Intestinal Metaplasia Sizing Start Total Area Ablated Number of Ablations Ablation Comment Last Modified By: Toña Hastings RN Hamlin, Sherri, RN 11/05/18 12:40:30 11/05/18 12:50:59 [facility] - Endoscopy Details Audit 11/05/18 12:50:59 Compliance Clerk: LAVONNE Modifier: [email or web address] <+> 2 Abdomen Procedure Assessment <+> 2 Procedure Abdomen Assessment D/T <+> 2 Dilators <+> 2 Dilator Size [facility] - Fire Risk Assessment Entry 1 Fire Info Surgical Site or 1- Yes Incision Above the Xyphoid Open O2 Source 1- Yes (Mask or Cannula) Available Ignition 1- Yes (ESU, Laser, Light Source) Fire Risk 3 Assessment Score Fire Score Fire Risk Yes Assessment Complete Fire Risk Toña Hastings RN Assessment Verified By Fire Risk 11/05/18 12:40:00 Assessment Verified Date/Time Fire Risk High Risk Protocol Yes Implemented Standard Fire Yes Safety Precautions Followed Last Modified By: Toña Hastings RN 11/05/18 12:40:37 [facility] - General Case Tubing Machine Operator 1 Case Information OR Endo 03 [facility] Case Level 1 Room Verified Yes Wound Class II - Clean-Contaminated Specialty SN Gastroenterology Anesthesia Type MAC ASA Class 2 Diagnosis Preop Diagnosis DYSPHAGIA Postop Same As Preop No Postop Diagnosis ESOPHAGITIS ,PYLORIC ULCER,ESOPHAGEAL STRICTURE,GASTRITIS Last Modified By: Toña Hastings RN 11/05/18 12:55:12 [facility] - General Case Data Audit 11/05/18 12:55:12 Compliance Clerk: LAVONNE Modifier: [email or web address] <+> 1 Postop Diagnosis [facility] - Intraoperative Assessment Entry 1 Valid History / Yes Physical in Chart Preoperative Yes Checklist Reviewed/Evaluated Allergies Reviewed Yes Patient is Latex No Sensitive Level of WDL Consciousness (WDL = Alert, Oriented to Person, Place, and Time) Present Upon ECG monitored Arrival to OR Last Modified By: Toña Hastings RN 11/05/18 12:41:23 [facility] - Intraoperative Equipment Entry 1 Equipment Intraop Monitoring Electrocardiogram Three lead placement (ECG) Electrode Placement Blood Pressure Arm, left upper Location Pulse Oximeter Hand, right Probe Site Antiembolic Devices Scopes Flexible Endoscopes Gastroscope Used Scope Serial [id number] Number/Identificatio n Number Photo/Video Documentation Photo Yes Video No Last Modified By: Toña Hastings RN 11/05/18 12:41:42 [facility] - Patient Positioning Entry 1 Procedure Esophagogastroduodenosco py, Gastric Biopsy, Esophageal Dilatation Body Position Lateral, right side up Left Arm Position Resting at side Right Arm Position Resting at side Left Leg Position Other Right Leg Position Other Position Comments Right leg over left leg uncrossed Feet Uncrossed Yes Pressure Points Yes Checked Positioned By Toña Hastings RN Position Verified Positioning Yes Verified by Surgeon Last Modified By: Toña Hastings RN 11/05/18 12:49:46 [facility] - Patient Positioning Audit 11/05/18 12:49:46 Compliance Clerk: [email or web address] Modifier: [email or web address] 1 <*> Procedure Esophagogastroduodenoscopy [facility] - Sign In Entry 1 Patient, Site, Yes Procedure Identified Surgical Consent Yes Confirmed Relevant Surgical Yes Documents Available Surgical Site N/A Marked by person performing procedure Allergies No Airway Hypothermia Risk No Warming Measures No Taken Last Modified By: Toña Hastings RN 11/05/18 12:42:14 [facility] - Sign Out Entry 1 RN Confirmation Surgical Yes Procedure(s) Identified Instrument, Sponge N/A and Sharps Counts Correct/Documented Equipment Problems N/A Documented Specimen Labeled Yes Correctly Urinary Catheter N/A Documented in IView Safety Checklist Yes Elements Complete? RN Sign Out Toña Hastings RN Signature RN Sign Out 11/05/18 12:55:00 Signature Date/Time Plan of Care Outcome - Fire Risk OUTCOME STATEMENT: Goal met Patient is free from injury related to surgical fire Plan of Care Outcome - Pt Positioning OUTCOME STATEMENT: Goal met Absence of signs and symptoms of positioning injury. Plan of Care Outcome - Skin Prep OUTCOME STATEMENT: Goal met Intraoperative care is consistent with measures to prevent infection Plan of Care Outcome - Xray/Images OUTCOME STATEMENT: N/A Absence of observable signs or symptoms of radiation injury Plan of Care Outcome - Counts OUTCOME STATEMENT: N/A Absence of signs and symptoms of injury related to extraneous objects Last Modified By: Toña Hastings RN 11/05/18 12:55:33 [facility] - Surgical Procedures Entry 1 Entry 2 Entry 3 Procedure Esophagogastroduodenosco Gastric Biopsy Esophageal Dilatation py Modifiers Additional Procedure Description Primary Procedure Yes No No Primary Surgeon TIARRA DE LOS SANTOS MD-GAE MARTIN, KATHLEEN, MD-GAE MARTIN, KATHLEEN, MD-GAE Start 11/05/18 12:46:00 11/05/18 12:46:00 11/05/18 12:46:00 Stop 11/05/18 12:53:00 11/05/18 12:53:00 11/05/18 12:53:00 Physician States Cecum Reached Anesthesia Type MAC MAC MAC Specialty SN Gastroenterology SN Gastroenterology SN Gastroenterology Wound Class II - Clean-Contaminated II - Clean-Contaminated II - Clean-Contaminated Last Modified By: Toña Hastings RN Hamlin, Sherri, RN Hamlin, Sherri, RN 11/05/18 12:56:11 11/05/18 12:56:11 11/05/18 12:56:11 [facility] - Surgical Procedures Audit 11/05/18 12:56:11 Compliance Clerk: [email or web address] Modifier: [email or web address] <+> 1 Start <+> 2 Start <+> 3 Start 11/05/18 12:55:40 Compliance Clerk: [email or web address] Modifier: [email or web address] <+> 1 Stop <+> 2 Stop <+> 3 Stop 11/05/18 12:49:41 Compliance Clerk: LAVONNE Modifier: [email or web address] <+> 2 Procedure <+> 2 Primary Procedure <+> 2 Primary Surgeon <+> 2 Specialty <+> 2 Wound Class <+> 2 Anesthesia Type <+> 3 Procedure <+> 3 Primary Procedure <+> 3 Primary Surgeon <+> 3 Specialty <+> 3 Wound Class <+> 3 Anesthesia Type [facility] - Time Out Entry 1 Procedure to be Esophagogastroduodenosco Performed py, Gastric Biopsy, Esophageal Dilatation Time Out Time Out Pause Time 11/05/18 12:44:00 All activity Yes suspended (unless life threatening emergency) Team Verbally Correct patient Confirms Information identity, Correct side and site are marked, Consent form is present and accurate, Agreement on the procedure to be done, Correct patient position Antibiotic N/A Prophylaxis Administered Or In Progress Within the Last 60 Minutes Beta Jada N/A Administered Venous N/A Thromboembolism Prophylaxis Required Anticipated Critical Events Surgeon None expected Last Modified By: Toña Hastings RN 11/05/18 12:49:46 [facility] - Time Out Audit 11/05/18 12:49:46 Compliance Clerk: LAVONNE Modifier: [email or web address] 1 <*> Procedure to be Performed Esophagogastroduodenoscopy Case Comments <None> Finalized By: Toña Hastings, KVNG Document Signatures Signed By: Toña Hastings RN 11/05/18 12:56 documented in this encounter Plan of Treatment Not on file documented as of this encounter Visit Diagnoses Not on filedocumented in this encounter
--- OUTSIDE RECORDS SUMMARY | 2025-03-27 19:05 | XMS_ITS | Encounter Summary ---
Author Organization [facility] [employer] ([place], [place], [place], [place]) Address [address] [place] [address] Care Team Providers Care Change Management Consultant Name Role Phone Unavailable Primary Care Provider Unavailabl e Encounter Details Date Type Department Care Team (Late st Contact Info) Description 10/14/2018 Transcribed Document [facility] Family Medicine [facility] [place] [address] ProviderPaul MD [facility] [place] [address] Social History Tobacco Use Types [...] Conversion Note - Historical ProviderMD - 10/14/2018 2:02 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 [address] [place] [address] PERSON INFORMATION Name DEANA SOMERS Age 48 Years 1970 Sex Male Language Guatemalan PCP [address] Marital Status Single Med Service Emergency Medicine Acct# Arrival 10/13/2018 22:23:00 Visit Reason Foreign body in throat; SOMETHING STUCK AFTER SWOLLING, HUNG IN CHEST AREA Acuity 3 - Urgent LOS 000 03:39 Depart Date: 10/14/18 02:02 AM Address: [facility] [address] Comment: PROVIDER INFORMATION Provider Role Assigned Unassigned Svetlana [facility] ED Physician 10/13/2018 22:36:30 ARLEN CORNEJO, OPERATIONS ACCOUNTANT Nurse 10/13/2018 22:54:32 DIAGNOSIS PHYS DOC NOTES VITALS INFORMATION Vital Sign Triage Latest Temp Source Temporal artery scanning Oral Temp Mode Fahrenheit Fahrenheit Temp Fahrenheit 96.5 Deg F 95.3 Deg F Temp Celsius 02 Sat 96 % 96 % Respiratory Rate 18 Breaths/Min 19 Breaths/Min Peripheral Pulse Rate 93 bpm 93 bpm Apical Heart Rate Blood Pressure 139 mmHg / 91 mmHg 112 mmHg / 78 mmHg Comment: MEDICAL INFORMATION Allergy Info: No Known Medication Allergies Medications: Comment: DISCHARGE INFORMATION Discharge Disposition: Home Discharge Location: PATIENT EDUCATION INFORMATION Instructions: Follow up: With: Address: When: TIARRA ESPINOZA [address] [facility], [address] [place] [id number] [facility] (1) Within 2 to 3 days Comments: Prilosec 20mg daily over the counter Call Dr Espinoza tomorrow for an appointment in a few days With: Address: When: MEMO ESPINOZA [address], [address] [place] [address] [facility] (1) Within 2 to 3 days With: Address: When: [address] WOODY Within 2 to 3 days Comment: Electronically signed by Sherita Larsen [employer] at 12/22/2022 7:41 PM CDT documented in this encounter Plan of Treatment Not on file documented as of this encounter Visit Diagnoses Not on filedocumented in this encounter
--- OUTSIDE RECORDS SUMMARY | 2025-03-27 19:06 | XMS_ITS | Clinical Summary ---
Author Organization [facility] Address [address] [place] [address] Phone Care Team Providers Care Vehicle Assembler Name Role Phone Pramod Monsivais MD Unavailable [phone] Nonstaff, Referring Primary Care Provider Unavai lable Allergies Active Allergy Reactions Criticality Noted Date Comments Lisinopril Cough 10/09/2020 Medications rosuvastatin (CRESTOR) 10 mg Oral Tablet Take 10 mg by mouth daily. Active pantoprazole (PROTONIX) 40 mg Oral Tablet, Delayed Release (E.C.)Indication s:Epigastric pain,Left upper quadrant abdominal pain,Right upper quadrant abdominal pain,Gastroesoph ageal reflux disease, unspecified whether esophagitis present Take 1 Tab by mouth 2 times daily (before meals). 60 Tab 5 0 Active losartan (COZAAR) 25 mg Oral Tablet Take 25 mg by mouth daily. Active oxyCODONE (ROXICODONE) 5 mg Oral Tablet Take 1 Tab by mouth every 4 hours as needed for Acute Pain > 3 Days Medically Necessary (R52) or Major Surgery/Trauma (G89.18). 20 Tab 1 Active Additional Information Patient not taking.Reason: Therapy Completed, Reported on 09/19/2021 Active Problems Problem Noted Date Diagnosed Date Biliary colic 09/27/2020 Overview (09/27/2020): Added automatically from request for surgery [id number] Chest pain 02/25/2013 GERD (gastroesophageal reflux disease) 3 Immunizations Immunization Administration Dates Next Due Influenza Seasonal Injectable PF 06/16/2014 Tdap 06/08/2021 Surgical History Surgery Date Site/Laterality Comments CARDIAC CATHETERIZATION 2013 NEGATIVE HAND SURGERY RIGHT THUMB TENDON REPAIR COLONOSCOPY 09/08/2020 - 10/08/2020 7 POLYPS REMOVED UPPER GASTROINTESTINAL ENDOSCOPY 09/08/2020 - 10/08/2020 NEG CHOLECYSTECTOMY, LAPAROSCOPIC 10/12/2020 Abdomen/N/A Laparoscopic cholecystectomy; Surgeon: Vi Johnson MD; Location: [facility]IN OR; Service: General Medical History Medical History Date Comments Diverticulitis Acid reflux Arm fracture, left CASTED Foot fracture, left Tobacco abuse Alcohol abuse daily ETOH intak e Chest pain Hypertension Hypercholesterolemia Family History Medical History Relation Name Comments No Known Problems Brother 1 No Known Problems Brother 2 COPD Mother No Known Problems Sister 1 No Known Problems Sister 2 Relation Name Status Comments Brother 1 Alive Brother 2 Alive Father Mother Sister 1 Alive Sister 2 Alive Social History Tobacco Use Types Packs/Day Years Used Date Smoking Tobacco: Every Day Cigarettes 0.5 15 Smokeless Tobacco: Never Comments:2-3 PER DAY Alcohol Use Standard Drinks/Week Comments Yes 4 (1 standard drink = 0.6 oz pur e alcohol) social driinker Sex and Gender Information Value Date Recorded Sex Assigned at Not on file Legal Sex Male 8:23 PM EDT Gender Identity Not on file Sexual Orientation Not on file Obstetrics History Last Filed Vital Signs Vital Sign Reading Time Taken Comments Blood Pressure 117/80 09/19/2021 11:56 AM EST Pulse 75 09/19/2021 11:56 AM EST Temperature 36.4 C (97.5 F) 09/19/2021 10:18 AM EST Respiratory Rate 14 09/19/2021 11:56 AM EST Oxygen Saturation 98% 09/19/2021 11:56 AM EST Inhaled Oxygen Concentration - - Weight 86.2 kg (190 lb) 10/23/2020 11:14 AM EST Height 170.2 cm (5' 7 ) 10/09/2020 10:02 AM EST Body Mass Index 29.76 10/09/2020 10:02 AM EST Plan of Treatment Health Maintenance Due Date Last Done Comments Annual Wellness Exam 1973 Hepatitis B Vaccine (1 of 3 - 19+ 3-dose series) 1989 Cologuard 2015 FIT 2015 Sigmoidoscopy 2015 Virtual Colonography 2015 Pneumococcal Vaccine 50+ (1 of 1 - PCV) 2020 Zoster (1 of 2) 2020 Colon Cancer Screening 08/28/2023 Colonoscopy 08/28/2023 08/28/2020 COVID-19 Vaccine (1 - 2023-2 5 season) 2024 Influenza Vaccine (#1) 2025 06/16/2014 DTaP/TDaP/Td (2 - Td or Tdap) 06/08/2031 06/08/2021 Meningococcal B Vaccine Aged Out No l onger eligible based on patient's age to complete this topic Procedures Procedure Name Priority Date/Time Associated Diagnosis Comments [facility] EGD-COLONOSCOPY Routine 08/28/2020 1:20 PM EST from Last 3 Months or Most Recently Relevant to Health Maintenance Results * [facility] EGD-COLONOSCOPY (08/28/2020 1:20 PM EST) 08/28/2020 1:20 PM EST Impressions [facility] - 08/29/2020 7:27 AM EST Plan: Follow up pathology results. If you do not receive pathology results within 2 weeks, please call our office for findings and final recommendations. Interval to next Colonoscopy will be based upon histology of polyp(s). This section is an excerpt of the full report. us Dean Hale MD PHD GI PROCEDURE ORDERABLES Jabari gucci Result - Final Performing Organization Address City/State/[facility] Co de Phone Number [facility] [address] [place] [address] from Last 3 Months or Most Recently Relevant to Health Maintenance Insurance [facility] [employer] [place] MDR PPO [employer] [place] MDR Member Subscriber Plan / Payer (Ef fective 2020-Present) Name:Ashwin Somers Relation to Subscriber:Self Name:Ashwin Somers Payer ID:Not on file Group ID:[id number] Type:Not on file Address: [address] [place] [address] [place], [place] [address]O Member Subscriber Plan / Payer (Ef fective 2021-Present) Name:Ashwin Somers Member ID:[id number] Relation to Subscriber:Self Name:Ashwin Somers Subscriber ID:[id number] Payer ID:[id number] (NAIC) Type:Not on file Address: [address] [place] [phone] [place] [address] Care Teams Vehicle Assembler Relationship Specialty Start Date End Date Nonstaff, Referring PCP - General 11/27/16 Pramod Monsivais MD [address] [place] [address] Physician Internal Medicine-Cardiovascular Disease 04/02/13
--- OUTSIDE RECORDS SUMMARY | 2025-03-27 19:06 | XMS_ITS | Encounter Summary ---
Author Organization [place] [address] Care Team Providers Care Cushion Mat Maker Name Role Phone Pramod Monsivais MD Unavailable [phone] Nonstaff, Referring Primary Care Provider Zeinab jewell Encounter Details Date Type Department Care Team (Late st Contact Info) Description 08/28/2020 Lab Requisition [facility] [place] [id number] Dean Hale MD PHD [address] [place] [address] Epigastric pain; Right upper quadrant pain; Left upper quadrant pain; Gastro-esophageal reflux disease without esophagitis; Diverticulitis of large intestine without perforation or abscess without bleeding; Encounter for screening for malignant neoplasm of colon; Change in bowel habit; Other specified diseases of esophagus; Diverticulosis of large intestine without perforation or abscess without bleeding; Polyp of colon Social History Tobacco Use Types Packs/Day Years Used Date Smoking Tobacco: Every Day Cigarettes 0.5 15 Smokeless Tobacco: Never Alcohol Use Standard Drinks/Week Comments Yes 4 (1 standard drink = 0.6 oz pur e alcohol) social jewel Sex and Gender Information Value Date Recorded Sex Assigned at Not on file Legal Sex Male 8:23 PM EDT Gender Identity Not on file Sexual Orientation Not on file COVID-19 Exposure Response Date Recorded In the last month, have you been in contact with someone who was confirmed or suspected to have Coronavirus / COVID-19? No / Unsure 08/07/2020 9:32 AM EST documented as of this encounter Plan of Treatment Not on file documented as of this encounter Procedures Procedure Name Priority Date/Time Associated Diagnosis Comments PATHOLOGY TISSUE REQUEST Routine 08/28/2020 1:20 PM EST Epigastric pain Right upper quadrant pain Left upper quadrant pain Gastro-esophageal reflux disease without esophagitis Diverticulitis of large intestine without perforation or abscess without bleeding Encounter for screening for malignant neoplasm of colon Change in bowel habit Other specified diseases of esophagus Diverticulosis of large intestine without perforation or abscess without bleeding Polyp of colon documented in this encounter Results * PATHOLOGY TISSUE REQUEST (08/28/2020 1:20 PM EST) CASE REPORT Surgical Pathology Case: [id number] Authorizing Provider: Dean Hale MD PHD Collected: 08/28/2020 1320 Ordering Location: [facility] Received: 08/28/2020 3586 Pathologist: Katia Marin MD Specimens: A) - Gastric B) - Colon C) - Large Intestine, Right/Ascending Colon D) - Hepatic flexure E) - Large Intestine, Transverse Colon F) - Splenic flexure G) - Rectum 08/31/2020 4:08 AM [email or web address] CLINICAL HISTORY Abdominal pain - epigastric; RUQ; LUQ; GERD; hx diverticulitis of colon; change in bowel habits. 08/31/2020 4:08 AM [email or web address] FINAL DIAGNOSIS A) Gastric biopsy: - Gastric mucosa with minimal chronic inflammation and focal features suggestive of possible chemical gastropathy change. - No H. Pylori organisms identified on H&E stain slide. B) Random colon: - Colonic mucosa without significant histopathologic abnormality. C) Ascending colon polyp, biopsy: - Fragments of tubular adenoma. - No high-grade dysplasia or malignancy. D) Hepatic flexure polyp, biopsy: - Fragments of tubular adenoma. - No high-grade dysplasia or malignancy. E) Transverse colon polyp, biopsy: - Fragments of tubular adenoma. - No high-grade dysplasia or malignancy. F) Splenic flexure polyp, biopsy: - Fragments of tubular adenoma. - No high-grade dysplasia or malignancy. G) Rectosigmoid colon polyp, biopsy: - Hyperplastic polyp. 08/31/2020 4:08 AM [email or web address] at 0408 EST MICROSCOPIC DESCRIPTION Microscopic examination is performed and the findings corroborate the diagnosis. 08/31/2020 4:08 AM EST [facility] EMBEDDED IMAGES 08/31/2020 4:08 AM [email or web address] GROSS DESCRIPTION Part A) Received in formalin labeled with the patient s name and b iopsy gastric are six fragments of ku tissue ranging from 0.2 to 0.4 cm in greatest dimension. Entirely submitted in one cassette. /TE Part B) Received in formalin labeled with the patient s name and b iopsy random colon are five fragments of ku tissue ranging from 0.2 to 0.4 cm in greatest dimension. Entirely submitted in one cassette. /TE Part C) Received in formalin labeled with the patient s name and p olyp - ascending colon are multiple fragments of ku tissue ranging from 0.2 to 0.8 cm in greatest dimension. Entirely submitted in one cassette. /TE Part D) Received in formalin labeled with the patient s name and p olyp - hepatic flexure are two fragments of ku tissue ranging from 0.3 to 0.4 cm in greatest dimension. Entirely submitted in one cassette. /TE Part E) Received in formalin labeled with the patient s name and p olyps - transverse colon are four fragments of ku tissue ranging from 0.2 to 0.3 cm in greatest dimension. Entirely submitted in one cassette. /TE Part F) Received in formalin labeled with the patient s name and p olyp - splenic flexure are two fragments of ku tissue averaging 0.5 cm in greatest dimension. Entirely submitted in one cassette. /TE Part G) Received in formalin labeled with the patient s name and p olyp - rectosigmoid colon is a single fragment of ku tissue, 0.5 cm in greatest dimension. Entirely submitted in one cassette. /TE 08/31/2020 4:08 AM EST [facility] Tissue SPECIMEN FROM RECTUM / Unknown 08/28/2020 1:20 PM EST 08/28/2020 6:56 PM EST Tissue specimen (specimen) COLON STRUCTURE / Unknown 08/28/2020 1:20 PM EST 08/28/2020 6:56 PM EST Tissue specimen (specimen) ASCENDING COLON STRUCTURE / Unknown 08/28/2020 1:20 PM EST 08/28/2020 6:56 PM EST Tissue specimen (specimen) STRUCTURE OF RIGHT COLIC FLEXURE / Unknown 08/28/2020 1:20 PM EST 08/28/2020 6:56 PM EST Tissue specimen (specimen) TRANSVERSE COLON STRUCTURE / Unknown 08/28/2020 1:20 PM EST 08/28/2020 6:57 PM EST Tissue specimen (specimen) STRUCTURE OF LEFT COLIC FLEXURE / Unknown 08/28/2020 1:20 PM EST 08/28/2020 6:57 PM EST Tissue specimen (specimen) RECTUM STRUCTURE / Unknown 08/28/2020 1:20 PM EST 08/28/2020 6:57 PM EST us Dean Hale MD PHD PATHOLOGY ORDERABLES Final Result [facility] [address] [place] [address] documented in this encounter Visit Diagnoses Diagnosis Epigastric pain Abdominal pain, epigastric Right upper quadrant pain Abdominal pain, right upper quadrant Left upper quadrant pain Abdominal pain, left upper quadrant Gastro-esophageal reflux disease without esophagitis Esophageal reflux Diverticulitis of large intestine without perforation or abscess without bleeding Diverticulitis of colon (without mention of hemorrhage) Encounter for screening for malignant neoplasm of colon Special screening for malignant neoplasms, colon Change in bowel habit Other specified diseases of esophagus Diverticulosis of large intestine without perforation or abscess without bleeding Diverticulosis of colon (without mention of hemorrhage) Polyp of colon Benign neoplasm of colon documented in this encounter Care Teams Cushion Mat Maker Relationship Specialty Start Date End Date Nonstaff, Referring PCP - General 11/27/16 Pramod Monsivais MD [address] [facility] [place] [address] Physician Internal Medicine-Cardiovascular Disease 04/02/13 documented as of this encounter
--- OUTSIDE RECORDS SUMMARY | 2025-03-27 19:06 | XMS_ITS | Encounter Summary ---
Author Organization [place] [address] Care Team Providers Care Quality Assurance Intern Name Role Phone Pramod Monsivais MD Unavailable [phone] Nonstaff, Referring Primary Care Provider Zeinab jewell Encounter Details Date Type Department Care Team (Late st Contact Info) Description 08/28/2020 Orders Only [facility] [address] [facility] [address] [place] [address] Dean Hale MD PHD [address] [place] [address] Social History Tobacco Use Types Packs/Day Years [...] [facility] EGD-COLONOSCOPY Routine 08/28/2020 1:20 PM EST documented in this encounter Results * [facility] EGD-COLONOSCOPY (08/28/2020 1:20 PM EST) 08/28/2020 1:20 PM EST Impressions [facility] - 08/29/2020 7:27 AM EST Plan: Follow up pathology results. If you do not receive pathology results within 2 weeks, please call our office for findings and final recommendations. Interval to next Colonoscopy will be based upon histology of polyp(s). This section is an excerpt of the full report. us Dean Hale MD PHD GI PROCEDURE ORDERABLES Jabari gucci Result - Final [facility] [address] [place] [address] documented in this encounter Visit Diagnoses Not on filedocumented in this encounter Care Teams Quality Assurance Intern Relationship Specialty Start Date End Date Nonstaff, Referring PCP - General 11/27/16 Pramod Monsivais MD [address] [place] [address] Physician Internal Medicine-Cardiovascular Disease 04/02/13 documented as of this encounter
--- NOTE | 2025-03-27 19:11 | ED_ITS ---
<Statement entered by Brian Kumar MD - 03/27/25 23:31> I was consulted by the VIDHI, and we discussed the complexity of the problems being addressed. I approved the treatment and management plan for this patient's care in the emergency department, thus performing a substantive portion of the medical decision making. Brian Kumar MD Discharge Plan Disposition Patient Disposition: Home, Self-Care Prescriptions Prescriptions: No Action No Known Home Medications Referrals Follow up/Referrals: Tomasa Canales APRN [Primary Care Provider, Family Practice] - See instructions Activity Restrictions/Add. Instructions Additional Instructions/Restrictions: Today you were evaluated in the emergency department had sutures placed on your right hand. Please keep the dressing over your right hand on for 24 hours. After that, you may wash your hands like normal. Please have the sutures removed in 7 days. Please return for any signs of infection. Return to the ED for any worsening of condition. Clinical Impressions Clinical Impression: Laceration Instructions Patient Instructions: DI for Laceration Repair Print Language Print Language: Malagasy Discharge ED Provider: Brian Kumar General Adult HPI General Chief complaint: Wound/Laceration Stated complaint: AO 03/27/25 1700 laceration right hand Time Seen by Provider: 03/27/25 18:58 Mode of Arrival: Ambulatory Source of Information: Patient Description of Symptoms (Recalled from ER Triage Doc. by RN): PT presents to the ED today for evaluation of R top of hand laceration. PT stated he got it caught between boards. Denies nails in board. Hasn't taken analgesics. Pt drinks weekly. History of Present Illness HPI narrative: patient is a 54-year-old male who presents to the ED for a laceration on his right hand. Patient states that his right hand was hit with a piece of wood while he was working causing a laceration. He has full ROM of right hand. Related Data Home Medications ?Medication ?Instructions ?Recorded ?Confirmed No Known Home Medications 10/27/1810/09 Allergies Allergy/AdvReac Type Severity Reaction Status Date / Time No Known Allergies Allergy Verified 10/27/18 03:53 [facility] Disclaimer: The information contained in this section may have been updated after the patient was seen, as this information can be updated by other users. Social History Smoking Status: Current every day smoker alcohol intake: current alcohol intake frequency: holidays/special occasions only current occupational status: employed Travel in the last 8 weeks?: None housing: house Have you lived/traveled outside US in past 30 days?: No Contact w/someone who lives/traveled outside US past 30 days?: No Exposure to someone with infectious disease in past 14 days?: No Do you have a fever (greater than 100.4 F or 38 C)?: No Have you tested positive for COVID-19?: No Exposed to someone with COVID-19 in past 14 days?: No Do you have a sore throat?: No Do you have a cough?: No Do you have any weakness?: No Do you have any diarrhea?: No Are you experiencing any unusual bleeding?: No Do you have any muscle aches/pain?: No Do you have any abdominal pain?: No Are you experiencing loss of taste or smell?: No Other Medical History Have you received the Flu Vaccine for this season: No Have you received the Pneumonia Vaccine: No ROS Obtained: Yes Systems reviewed as appropriate & no additional complaints except as documented Physical Exam General General appearance: alert and in no apparent distress Head Head exam: atraumatic Eye Eye exam: Present normal appearance Respiratory Respiratory exam: Present normal lung sounds bilaterally Cardiovascular Cardiovascular exam: Present regular rate Abdominal Exam Abdominal exam: Present soft Neurological Exam Neurological exam: Present alert and oriented X3 Skin Skin exam: Present other (R hand V shape laceration in between thumb and index finger, full ROM present ) Medical Decision Making Medical Records Screening: Per USPSTF and CDC recommendations, given the prevalence of disease in our region, it is our hospital?s policy to screen for HIV and viral Hepatitis for all patients aged 18 and over and those with ongoing risk factors. Paramjit Inquiry Pt receiving controlled substance: No Vital Signs: 03/27/25 19:04 03/27/25 20:50 Temperature 98.2 F 98 F Temperature Source Oral Oral Pulse Rate 87 Pulse Rate [Right] 78 Respiratory Rate 18 16 Blood Pressure 115/71 Blood Pressure [Right Arm] 137/89 Blood Pressure Mean [Right Arm] 105 Blood Pressure Source Automatic Cuff Blood Pressure Position Sitting 02 Sat by Pulse Oximetry 100 Oxygen Delivery Method Room Air Room Air Orders (Tests/Meds): ED MEDICATIONS Discontinued Medications Generic Name Dose Route Start Last Admin Trade Name Freq PRN Reason Stop Dose Admin Acetaminophen 1,000 mg 03/27/25 19:06 03/27/25 20:47 Acetaminophen 500mg Tab PO 03/27/25 19:07 1,000 mg ONCE ONE Administration Lidocaine HCl 20 ml 03/27/25 19:08 03/27/25 20:50 Lidocaine 1% 20ml Mdv SUBCUT 03/27/25 19:09 20 ml ONCE ONE Administration Tetanus/Diphtheria Toxoids 0.5 ml 03/27/25 19:06 03/27/25 20:48 Tetanus-Diphth Toxoid, Adult 0.5ml Syr IM 03/27/25 19:07 0.5 ml .ONCE ONE Administration ORDERS Category Date Time Status Hand XR right 2 views [XR hand RT 2V] Stat Exams 03/27/25 19:05 Completed Medical Decision Narrative: In summary, patient is a 54-year-old male who presents to the ED for a laceration on his right hand. Patient states that his right hand was hit with a piece of wood while he was working causing a laceration. He has full ROM of ri ght hand. He states that he is having pretty significant pain in his right hand due to the laceration. He denies any other injuries at this time. Upon initial evaluation patient is alert, oriented and cooperative. He has a V-shaped laceration in between his right thumb and right index finger. Hand was cleaned with Hibiclens soak, tetanus was updated. Laceration was closed using sterile procedure, numbed with 1% lidocaine, 3 mL total. Cleaned with iodine prior to closing, I used Ethilon 4.0 sutures, 7 sutures placed. A nonadherent gauze and René wrap was placed around the laceration postprocedure. Patient tolerated the procedure well. I discussed with patient to keep the area clean and dry. Do not remove the dressing for 24 hours. After that, wash her hands with soap and water. Advised of signs of infection to look for. We discussed having the sutures removed in 7 days. We discussed follow-up with PCP. Discussed return precautions to the ED. Patient verbalized understanding. Critical Care Critical Care Time Critical Care Time: No
[2025-03-27] MEDS: ACETAMINOPHEN 500MG TAB 1000 MG PO (20:47)
[2025-03-27] MEDS: TETANUS-DIPHTH TOXOID, ADULT 0.5ML SYR 0.5 ML IM (20:48)
[2025-03-27 20:50] VITALS: BP 115/71; PULSE 87; RESP 16; TEMP 36.6; O2SAT 98
[2025-03-27] MEDS: LIDOCAINE 1% 20ML MDV 20 ML SUBCUT (20:50)
== END 2025-03-27 20:52 | disposition home or self-care (01) ==
PROVIDERS: Emergency Provider Emergency Medicine; PCP Nurse Practitioner
DX: S61.411A Laceration without foreign body of right hand, initial encounter (principal); F17.200 Nicotine dependence, unspecified, uncomplicated; W22.8XXA Striking against or struck by other objects, initial encounter
CPT/HCPCS: 12001; 73120; 90471; 90714; 99283; J2003